=== PATIENT | male | born 1995 | race Caucasian/White ===

== ENCOUNTER 2018-07-14 11:23 | Inpatient (IN) ==
[2018-07-14] MEDS ORDERED: 0.9 % Sodium Chloride 1,000 ML IVC ONE ×3 (11:35→12:28)
[2018-07-14] MEDS ORDERED: Naloxone 0.4 MG/ML INJ IVP ONE (11:35)
--- NOTE | 2018-07-14 11:43 | Emergency Department Note ---
Overdose - [facility] Narrative Medical decision making narrative: Pt is a 23yo male who presents found to be in drug overdose. He was initially very hard to arouse but became combative when trying to have the pt worked up. CXR showed a right upper lobe pnuemonia, due to suspicion for aspiration and poor dentation clindamycin was given. CT head was negative for acute intracranial abnormality. CK was 3031 and fluids were given. Pt will be admitted for rhabdomyolysis and drug overdose. Potassium 3.4, replaced. Spoke with a dmitting physciain and she agrees to admission. - Medical Records Medical records reviewed: Yes I reviewed the patient's medical records. - Lab Data Lab results reviewed: Yes I reviewed the patient's lab results. Result diagrams: 07/14/18 17:58 07/14/18 11:45 Lab Results 07/14/18 07/14/18 07/14/18 Range/Units 11:34 11:45 11:45 WBC 17.3 H (4.3-11.1) K/mcL RBC 5.17 (4.19-5.50) M/mcL Hgb 14.5 (12.9-16.9) g/dL Hct 40.8 (37.5-50.1) % MCV 78.9 L (83.0-100.0) fL MCH 28.0 (28.0-33.3) pg MCHC 35.5 (31.6-35.5) g/dL RDW 11.9 (11.5-14.5) % Plt Count 224 (140-400) K/mcL MPV 10.0 (9.4-12.4) fL Immature Gran % 0.6 (0-4) % Seg Neutrophils % 71.9 % Lymphocytes % 14.7 % Monocytes % 12.4 % Eosinophils % 0.0 % Basophils % 0.4 % Neutrophils # 12.4 H (1.6-8.9) K/mcL Lymphocytes # 2.5 (0.6-4.6) K/mcL Monocytes # 2.2 H (0.0-1.3) K/mcL Eosinophils # 0.0 (0.0-0.6) K/mcL Basophils # 0.1 (0.0-0.2) K/mcL Sodium (136-145) mEq/L Potassium (3.5-5.1) mEq/L Chloride (98-107) mEq/L Carbon Dioxide (23-29) mEq/L BUN (6-20) mg/dL Creatinine (0.70-1.30) mg/dL Est GFR ( Amer) (> 60) Est GFR (Non-Af Amer) (> 60) BUN/Creatinine Ratio (6-26) Glucose (70-105) mg/dL POC Glucose 86 (70-99) mg/dL Calculated Osmolality (280-300) Calcium (8.6-10.3) mg/dL Total Bilirubin (0.3-1.0) mg/dL Direct Bilirubin (0.0-0.2) mg/dL Indirect Bilirubin (0.0-1.2) mg/dL AST (13-39) Units/L ALT (7-52) Units/L Alkaline Phosphatase (34-104) Units/L Creatine Kinase (30-223) Units/L Serum Total Protein (6.4-8.9) g/dL Albumin (3.5-5.7) g/dL Globulin (2.4-3.5) g/dL Albumin/Globulin Ratio (1.1-2.2) Salicylates < 2.5 L (15.0-30.0) mg/dL Acetaminophen < 10 L (10-20) mcg/mL Ethyl Alcohol (Less than 10) mg/dL 07/14/18 Range/Units 11:45 WBC (4.3-11.1) K/mcL RBC (4.19-5.50) M/mcL Hgb (12.9-16.9) g/dL Hct (37.5-50.1) % MCV (83.0-100.0) fL MCH (28.0-33.3) pg MCHC (31.6-35.5) g/dL RDW (11.5-14.5) % Plt Count (140-400) K/mcL MPV (9.4-12.4) fL Immature Gran % (0-4) % Seg Neutrophils % % Lymphocytes % % Monocytes % % Eosinophils % % Basophils % % Neutrophils # (1.6-8.9) K/mcL Lymphocytes # (0.6-4.6) K/mcL Monocytes # (0.0-1.3) K/mcL Eosinophils # (0.0-0.6) K/mcL Basophils # (0.0-0.2) K/mcL Sodium 134 L (136-145) mEq/L Potassium 3.4 L (3.5-5.1) mEq/L Chloride 97 L (98-107) mEq/L Carbon Dioxide 21 L (23-29) mEq/L BUN 19 (6-20) mg/dL Creatinine 1.06 (0.70-1.30) mg/dL Est GFR ( Amer) > 60 (> 60) Est GFR (Non-Af Amer) > 60 (> 60) BUN/Creatinine Ratio 18 (6-26) Glucose 87 (70-105) mg/dL POC Glucose (70-99) mg/dL Calculated Osmolality 280 (280-300) Calcium 9.2 (8.6-10.3) mg/dL Total Bilirubin 1.3 H (0.3-1.0) mg/dL Direct Bilirubin 0.4 H (0.0-0.2) mg/dL Indirect Bilirubin 0.9 (0.0-1.2) mg/dL AST 95 H (13-39) Units/L ALT 44 (7-52) Units/L Alkaline Phosphatase 48 (34-104) Units/L Creatine Kinase 3031 H (30-223) Units/L Serum Total Protein 7.8 (6.4-8.9) g/dL Albumin 4.6 (3.5-5.7) g/dL Globulin 3.2 (2.4-3.5) g/dL Albumin/Globulin Ratio 1.4 (1.1-2.2) Salicylates (15.0-30.0) mg/dL Acetaminophen (10-20) mcg/mL Ethyl Alcohol < 10 (Less than 10) mg/dL - Radiology Data Radiology results reviewed: Yes I reviewed the patient's radiology results. - EKG Data EKG attestation: Yes I reviewed and interpreted this EKG. EKG shows normal: sinus rhythm Rate: tachycardia Rhythm: NSR When compared to previous EKG there are: previous EKG unavailable Interpretation: no acute changes Overdose HPI - General Chief Complaint: ED Overdose Stated Complaint: Overdose Time Seen by Provider: 07/14/18 11:25 - History of Present Illness HPI Narrative: Mr Yoo is a 23yo male who is brought in by EMS. He apperently was released from longterm not too long ago and was at a drug house. He took an unknown substance while at this house and was found passed out. He is extremely somnolent and not able to provide a history of what happened whatsoever. On the way to ER he was given Versed due to agitation and had an IV started. He was immeditely assessed on arrival to the ER and was extremely somnolent. Pt Subjective Complaint: accidental overdose Onset (ago): unknown Intent: unknown How Overdose Was Discovered: other (EMS squad called) - Related Data Home Medications Medication Instructions Recorded Confirmed Unable To Obtain [Unable to Obtain] 07/14/18 07/14/18 Allergies Allergy/AdvReac Type Severity Reaction Status Date / Time Penicillins [PCN] Allergy Rash Verified 04/30/16 10:31 Limitations: ROS unobtainable due to patients medical condition Past Medical History - Past Medical History Medical history: Reports: no medical history - Social History Smoking Status: Current every day smoker Smokeless Tobacco Status: No Alcohol use: Reports: occasionally Physical Exam - General Limitations: altered mental status General appearance: appears intoxicated, lethargic, obtunded - Expanded Head Exam Head exam physicial: Present: laceration, abrasion, other (multiple scabs and cuts to the face, dried blood around nose, appears to have had trauma to the face) - Eye Eye exam: Present: mydriasis. Absent: scleral icterus - ENT ENT exam: mucous membranes dry, other (dried blood around nose) - Neck Neck exam: Present: normal inspection, trachea midline - Chest Chest inspection: Present: normal inspection, symmetric chest wall rise - Respiratory Respiratory exam: Present: normal lung sounds bilaterally. Absent: respiratory distress, wheezes - Cardiovascular Cardiovascular exam: Present: tachycardia, +S1, +S2. Absent: rubs, gallop, clicks - Abdominal Exam Abdominal exam: Present: soft. Absent: distention, guarding, rebound, rigidity - Extremities Exam Extremities exam: Present: normal capillary refill. Absent: pedal edema - Neurological Exam Neurological exam: Present: other (unable to assess). Absent: alert, oriented X3 - Expanded Neurological Exam Patient oriented to: Absent: person, place, time Coma Scale Eye Opening: None Coma Scale Motor Response: None Coma Scale Verbal Response: None Coma Scale Total: 3 - Psychiatric Psychiatric exam: Present: other (unable to assess) - Skin Skin exam: Present: warm, diaphoresis, other (covered in dirt) Course Course Narrative: Although the pt has a GSC of 3 on arrival, he improves to responsing to pain and is guarding his airway to gag reflex test. - Reevaluation(s) Reevaluation #1: Due to noncompliance with the workup including xr and CT, haldol and benadryl given. Vital Signs Temperature 101.5 F H 07/14/18 11:27 Pulse Rate 133 07/14/18 11:27 Respiratory Rate 35 07/14/18 11:27 Blood Pressure 138/70 07/14/18 11:27 O2 Sat by Pulse Oximetry 95 07/14/18 11:27 Temperature 101.5 F H 07/14/18 11:27 Pulse Rate 118 07/14/18 13:33 Respiratory Rate 24 07/14/18 13:33 Blood Pressure 136/78 07/14/18 13:33 O2 Sat by Pulse Oximetry 97 07/14/18 13:33 Oxygen Delivery Oxygen Delivery Room Air Disposition Clinical Impression: Drug overdose, Rhabdomyolysis Disposition: Admitted As Inpatient Condition: Serious Time of Disposition: 15:57 Attestation Statement - Attestation Attestation: Resident Attestation: I examined this patient and my medical decision making was reviewed with the Resident Physician. I agree with the documented findings, disposition and treatment plan as described except to the extent set forth below. We independently had [id number] contact with the patient. Patient presents for altered mental status. Was found at presumed drug house rolling around on the floor with altered mental status. The person the house states that he took "lots of meth". Patient has a long tattoo to his throat as well as crystal meth tattooed across his chest. He presents tachycardic and hyperthermic with dilated pupils and movement within the bed as well as gag reflex intact but no purposeful movements. The patient was given Narcan with no significant improvement. Patient will receive benzos as well as further workup for altered mental status for presumed from methamphetamines. Patient with elevated CK, leukocytosis, no abnormal CT of the head. Patient overall did improve while he was in the emergency department but did require 4 mg of Ativan. The patient then had overall improvement of his symptoms became more agitated with physical stimuli. Patient overall improving from a mental standpoint. Patient received Haldol for chemical sedation in order to allow us to perform head CT as well as chest x-ray. Patient did well with 2 mg of IV Haldol and 25 mg Benadryl. Patient will be admitted for further methamphetamine toxicity, rhabdo, altered mental status.
[2018-07-14] MEDS ORDERED: *HR* LORazepam 2 MG/ML VIAL IVP ONE ×4 (11:50→13:42)
[2018-07-14 12:01] LABS: Basophils # 0.1 K/mcL (0.0-0.2); Basophils % 0.4 %; Hematocrit 40.8 % (37.5-50.1); Hemoglobin 14.5 g/dL (12.9-16.9); Immature Granulocytes % 0.6 % (0-4); Lymphocytes # 2.5 K/mcL (0.6-4.6); Lymphocytes % 14.7 %; Mean Corpuscular HGB Conc 35.5 g/dL (31.6-35.5); Mean Corpuscular Volume 78.9 fL (83.0-100.0); Monocytes # 2.2 K/mcL (0.0-1.3); Monocytes % 12.4 %; Neutrophils # 12.4 K/mcL (1.6-8.9); Platelet Count 224 K/mcL (140-400); Red Blood Count 5.17 M/mcL (4.19-5.50); Red Cell Distribution Width 11.9 % (11.5-14.5); Segmented Neutrophils % 71.9 %
[2018-07-14 12:20] LABS: Acetaminophen < 10 mcg/mL (10-20); Alanine Aminotransferase 44 Units/L (7-52); Albumin 4.6 g/dL (3.5-5.7); Albumin/Globulin Ratio 1.4 (1.1-2.2); Alkaline Phosphatase 48 Units/L (34-104); Aspartate Amino Transferase 95 Units/L (13-39); BUN/Creatinine Ratio 18 (6-26); Bilirubin,Direct 0.4 mg/dL (0.0-0.2); Bilirubin,Indirect 0.9 mg/dL (0.0-1.2); Bilirubin,Total 1.3 mg/dL (0.3-1.0); Blood Urea Nitrogen 19 mg/dL (6-20); Calcium 9.2 mg/dL (8.6-10.3); Carbon Dioxide 21 mEq/L (23-29); Chloride 97 mEq/L (98-107); Ethanol < 10 mg/dL (Less than 10); Globulin 3.2 g/dL (2.4-3.5); Glucose 87 mg/dL (70-105); Osmolality,Calculated 280 (280-300); Potassium 3.4 mEq/L (3.5-5.1); Salicylate < 2.5 mg/dL (15.0-30.0); Sodium 134 mEq/L (136-145); Total Protein 7.8 g/dL (6.4-8.9); eGFR For Non-African Americans > 60 (> 60)
[2018-07-14 12:36] LABS: Creatine Kinase 3031 Units/L (30-223)
[2018-07-14] MEDS ORDERED: Haloperidol Lactate 5 MG/ML VIAL IVP ONE (13:42)
[2018-07-14] MEDS ORDERED: Clindamycin 300 MG in D5% in Water 50 ML IVPB ONE (15:44)
--- NOTE | 2018-07-14 16:06 | Internal Med History&Physical ---
Date of Encounter: 07/14/18 Time of Encounter: 16:03 Internal Medicine - H&P: HPI Chief complaint: Drug overdose Admitted From: Emergency Dept Plans for Post Hospital Care: Home History of present illness: Mr. Yoo is a 23 year old male patient brought to ER by EMS. As per EMS he took several pills of meth amphetamine but does not have accurate number as per patient. On the way Patient was very combative therefore worse at was given and brought to ER under sedated condition Initially in ER very hard to arouse but became combative again therefore Haldol, Benadryl and Ativan was given that put him on sleep. Mostly history obtained from ER physician and ED chart. In ER patient was found tachycardic with a spiked temperature. Initial lab with leukocytosis, raised CPK and mild electrolyte imbalance. CXR showed a right upper lobe pnuemonia, due to suspicion for aspiration and poor dentation clindamycin was given as patient also has penicillin allergy. CT head was negative for acute intracranial abnormality. ER physician called on-call hospitalists for the admission with the diagnosis of drug overdose, rhabdomyolysis, possible sepsis, aspiration pneumonia In ER IV fluid, clindamycin was given and blood culture was drawn. Review of system-unable to update due to clinical condition Past Med Surg Social Fam HX - Past Medical History Medical history: no medical history Psychiatric history: no psych history - Social History Smoking Status: Current every day smoker Smokeless Tobacco Status: No Alcohol use: occasionally Drug use: methamphetamine Internal Medicine - H&P: Meds Unable To Obtain [Unable to Obtain] 07/14/18 [History] Allergy/AdvReac Type Severity Reaction Status Date / Time Penicillins [PCN] Allergy Rash Verified 04/30/16 10:31 All Systems PM: A 10-system review of systems was performed and is negative for pertinent findings except as documented above in the HPI. - Constitutional Vitals: Temp Pulse Resp BP Pulse Ox 101.5 F H 118 24 136/78 97 07/14/18 11:27 07/14/18 13:33 07/14/18 13:33 07/14/18 13:33 07/14/18 13:33 Exam: General appearance: Patient is under the effect of sedating medicine.multiple scabs and cuts to the face, dried blood around nose, appears to have had trauma to the face) Eye exam: PERRLA ENT exam: Dry oral mucosa with poor dentition Neck nontender, supple Respiratory exam: Crackles on right upper lung Cardiovascular exam: Tachycardia with regular rhythm, no systolic murmur Abdominal exam: Soft, nontender, nondistended, positive bowel sounds Extremities exam: No calf tenderness, no pedal edema Present: Multiple scabs on face with the nearest scratch willem and face and other part of the body sporadically unable to exam Neurological exam: Unable to examine as patient under the effect of sedating medicine Internal Med - H&P Results - Labs CBC & Chem 7: 07/14/18 11:45 07/14/18 11:45 Labs: Short CBC 07/14/18 Range/Units 11:45 WBC 17.3 H (4.3-11.1) K/mcL Hgb 14.5 (12.9-16.9) g/dL Hct 40.8 (37.5-50.1) % Plt Count 224 (140-400) K/mcL Neutrophils # 12.4 H (1.6-8.9) K/mcL BMP 07/14/18 11:45 Sodium 134 L Potassium 3.4 L Chloride 97 L Carbon Dioxide 21 L BUN 19 Creatinine 1.06 Glucose 87 Calcium 9.2 Liver Function 07/14/18 Range/Units 11:45 Total Bilirubin 1.3 H (0.3-1.0) mg/dL Direct Bilirubin 0.4 H (0.0-0.2) mg/dL AST 95 H (13-39) Units/L ALT 44 (7-52) Units/L Alkaline Phosphatase 48 (34-104) Units/L Albumin 4.6 (3.5-5.7) g/dL - Impressions ITS Impressions Head CT 07/14/18 11:32 IMPRESSION: Negative CT brain with no acute intracranial abnormality. Incidental sinusitis as described D/ / Susana Henderson MD / Susana Henderson MD Interpreting Provider: Susana Henderson MD Cervical Spine CT 07/14/18 11:33 IMPRESSION: 1. Unremarkable appearance of the cervical spine. 2. Partially visualized extensive right upper lobe opacification. Possible right supraclavicular and mediastinal adenopathy. Findings may relate to pneumonia with reactive adenopathy however recommend contrast-enhanced CT examination of the chest for further assessment. D/ / Susana Henderson MD / Susana Henderson MD Interpreting Provider: Susana Henderson MD Chest X-Ray 07/14/18 11:35 IMPRESSION: Right upper lobe pneumonia D/ / Doug Nicholas MD / Doug Nicholas MD Interpreting Provider: Doug Nicholas MD - Assessment and plan (1) Drug overdose Current Visit: Yes Status: Acute Assessment and plan: Possibly methamphetamine with unknown quantity. Urine drug screen was not done in the ER as no urine sample was obtained. Patient was getting very irritable while attempting straight catheter. Will keep patient in ICU with close monitoring. Will consult erp manager if needed. Ativan when necessary for sedation. Will keep patient nothing by mouth with IV fluid 125 mL per hour with a strict I&O's. Will try to attempt fully catheter again. Will also rule out underlying infectious etiology. CT head with no acute finding. Tetanus shot given in the ER Will consult inpatient psych once medically cleared Qualifiers: Encounter type: initial encounter Injury intent: undetermined intent Qualified Code(s): T50.904A - Poisoning by unspecified drugs, medicaments and biological substances, undetermined, initial encounter (2) Rhabdomyolysis Current Visit: Yes Status: Acute Assessment and plan: Raised CPK with normal creatinine level. Possibility patient must have been lying on the floor for a while but no witnessed. IV fluid 125 mL per hour. CPK monitor. Will consult nephrology if needed. Qualifiers: Rhabdomyolysis type: non-traumatic Qualified Code(s): M62.82 - Rhabdomyolysis (3) Pneumonia Current Visit: Yes Status: Acute Assessment and plan: Possibility of aspiration pneumonia. Chest x-ray with right upper lobe pneumonia. Patient also has fever with raised white count. Clindamycin is started in the ER will continue same,. Oxygen when necessary Qualifiers: Pneumonia type: due to unspecified organism Laterality: right Lung location: upper lobe of lung Qualified Code(s): J18.1 - Lobar pneumonia, unspecified organism (4) Leucocytosis Current Visit: Yes Status: Acute Assessment and plan: With left shift. Possible sepsis, On admission SIRS criteria- 101.5, tachycardia, tachypnea, leukocytosis. Lactate ordered. Blood culture, urine culture ordered. Continue clindamycin. Qualifiers: Leukocytosis type: unspecified Qualified Code(s): D72.829 - Elevated white blood cell count, unspecified (5) Hypokalemia Current Visit: Yes Status: Acute Assessment and plan: Replacement and monitor (6) Fever Current Visit: Yes Status: Acute Assessment and plan: As mentioned above. Tylenol when necessary Qualifiers: Fever type: unspecified Qualified Code(s): R50.9 - Fever, unspecified (7) DVT prophylaxis Current Visit: Yes Status: Acute Assessment and plan: Heparin subcutaneous - Time Spent With Patient Total time spent is greater than 50% in coordination of care (as documented) at patient's floor/unit and/or counseling patient: Greater than 35 minutes
[2018-07-14] MEDS ORDERED: Tdap (Boostrix) Vaccine 0.5 ML SYRINGE IM ONE (16:27)
[2018-07-14] MEDS ORDERED: Naloxone 0.4 MG/ML INJ IVP PRN (16:31)
[2018-07-14] MEDS ORDERED: Potassium Chloride 20 MEQ, Lidocaine 1% 2 ML in D5% in Water 250 ML IVPB ONE (16:36)
[2018-07-14] MEDS ORDERED: Clindamycin 300 MG/50 ML 300 MG/50 ML IV.SOLN IVPB ONE (17:00)
[2018-07-14] MEDS ORDERED: Ondansetron 4 MG/2 ML VIAL IVP PRN (17:05)
[2018-07-14] MEDS: *HR* Heparin 5,000 UNIT/ML VIAL SQ SCH (18:04)
[2018-07-14] MEDS: 0.9 % Sodium Chloride 1,000 ML IVC SCH ×3 (18:04→18:48)
[2018-07-14 18:16] LABS: Basophils # 0.1 K/mcL (0.0-0.2); Basophils % 0.3 %; Hematocrit 36.8 % (37.5-50.1); Hemoglobin 12.9 g/dL (12.9-16.9); Immature Granulocytes % 0.4 % (0-4); Lymphocytes # 1.8 K/mcL (0.6-4.6); Lymphocytes % 11.1 %; Mean Corpuscular HGB Conc 35.1 g/dL (31.6-35.5); Mean Corpuscular Hemoglobin 28.4 pg (28.0-33.3); Mean Corpuscular Volume 80.9 fL (83.0-100.0); Mean Platelet Volume 9.7 fL (9.4-12.4); Monocytes # 1.7 K/mcL (0.0-1.3); Monocytes % 10.3 %; Neutrophils # 12.8 K/mcL (1.6-8.9); Platelet Count 187 K/mcL (140-400); Red Blood Count 4.55 M/mcL (4.19-5.50); Segmented Neutrophils % 77.9 %
[2018-07-14 18:42] LABS: Troponin I 0.06 ng/mL (< 0.04)
[2018-07-14] MEDS: *HR* LORazepam 2 MG/ML VIAL IVP PRN ×2 (19:01→21:04)
[2018-07-14 20:14] LABS: Magnesium 2.5 mg/dL (1.6-2.6)
[2018-07-14 21:26] LABS: Bilirubin,Urine Negative (Negative); Blood,Urine Small (Negative); Clarity,Urine Clear (Clear); Color,Urine Yellow (Yellow); Glucose,Urine (UA) Normal (Normal); Ketones,Urine 80 mg/dL (Negative); Leukocyte Esterase,Urine Negative (Negative); Nitrite,Urine Negative (Negative); Protein,Urine 30 mg/dL (Neg-Trace); Urobilinogen,Urine Normal (Normal)
[2018-07-14 21:28] LABS: Bacteria,Urine None Seen per hpf (None-Few); Hyaline Casts,Urine None Seen per lpf (None-Few); Squamous Epithelial Cell,Urine Moderate per lpf (None-Few)
[2018-07-14 21:41] LABS: Sperm,Urine Present
[2018-07-14 21:45] LABS: Amphetamine Screen,Urine Positive ng/mL (Cutoff=1000); Barbiturate Screen,Urine Negative ng/mL (Cutoff=200); Benzodiazepines Screen,Urine Positive ng/mL (Cutoff=200); Cannabinoid Screen,Urine Positive ng/mL (Cutoff = 50); Cocaine Screen,Urine Negative ng/mL (Cutoff= 300); Opiate Screen,Urine Negative ng/mL (Cutoff=300); Phencyclidine Screen,Urine Negative ng/mL (Cutoff=25)
[2018-07-14] MEDS: Clindamycin 600 MG/50 ML 600 MG/50 ML IV.SOLN IVPB SCH (23:20)
[2018-07-15] MEDS: *HR* LORazepam 2 MG/ML VIAL IVP PRN ×2 (00:20→07:26)
[2018-07-15] MEDS: 0.9 % Sodium Chloride 1,000 ML IVC SCH ×2 (02:24→07:25)
[2018-07-15 04:57] LABS: Basophils # 0.1 K/mcL (0.0-0.2); Basophils % 0.4 %; Eosinophils # 0.1 K/mcL (0.0-0.6); Eosinophils % 0.4 %; Hematocrit 37.3 % (37.5-50.1); Hemoglobin 12.7 g/dL (12.9-16.9); Immature Granulocytes % 0.3 % (0-4); Lymphocytes # 1.8 K/mcL (0.6-4.6); Lymphocytes % 15.7 %; Mean Corpuscular Volume 82.2 fL (83.0-100.0); Mean Platelet Volume 9.8 fL (9.4-12.4); Monocytes # 1.1 K/mcL (0.0-1.3); Monocytes % 9.5 %; Neutrophils # 8.3 K/mcL (1.6-8.9); Platelet Count 187 K/mcL (140-400); Red Blood Count 4.54 M/mcL (4.19-5.50); Red Cell Distribution Width 12.4 % (11.5-14.5); Segmented Neutrophils % 73.7 %
[2018-07-15 05:16] LABS: BUN/Creatinine Ratio 18 (6-26); Blood Urea Nitrogen 12 mg/dL (6-20); Calcium 8.3 mg/dL (8.6-10.3); Carbon Dioxide 17 mEq/L (23-29); Chloride 108 mEq/L (98-107); Chol/HDL Ratio 2.4 (0-4.9); Cholesterol 60 mg/dL (< 200); Glucose 75 mg/dL (70-105); HDL Cholesterol 25 mg/dL (40-59); LDL Cholesterol,Calculated 27 mg/dL (0-99); Osmolality,Calculated 282 (280-300); Potassium 3.9 mEq/L (3.5-5.1); Sodium 137 mEq/L (136-145); Triglycerides 41 mg/dL (< 150); eGFR For Non-African Americans > 60 (> 60)
[2018-07-15] MEDS: *HR* Heparin 5,000 UNIT/ML VIAL SQ SCH ×2 (06:08→17:40)
[2018-07-15] MEDS ORDERED: 0.9 % Sodium Chloride 1,000 ML IVC SCH (07:49)
--- NOTE | 2018-07-15 07:57 | Nephrology Consult Note ---
Date of Encounter: 07/15/18 Time of Encounter: 08:00 Assessment and Plan (1) Rhabdomyolysis Current Visit: Yes Status: Acute Non-oliguric with normal SCr, but worsening CPK. I recommend volume expansion with inc'd fluid rate to 200mL/hr. He also has a nonanion gap metabolic acidosis, which could worsen from a dilution acidosis possibility from the NS, so I recommend changing the IVF to 1/2NS + 75mEq NaBicarb. He has mild hypokalemia and hypocalcemia, and so I've started the Electrolyte replacement protocols while he is in the ICU and on a higher flow of IVF. Since he is making urine, I will hold off and not recommend KEY FILER at this point. However, he needs a repeat BMP rechecked later today and will need to assess an osmolar gap. He denied consuming antifreeze, but given his polysubstance consumption, will need to check an osmolar gap. I spent about 37 min in CCT including exam, review of chart, documentation, discussing with the ICU RNs. Thank you for consulting the [facility]. Will follow with you. Qualifiers: Rhabdomyolysis type: non-traumatic Qualified Code(s): M62.82 - Rhabdomyolysis (2) Metabolic acidosis Current Visit: Yes Status: Acute See above (3) Hypocalcemia Current Visit: Yes Status: Acute See above. (4) Drug overdose Current Visit: Yes Status: Acute See above Qualifiers: Encounter type: initial encounter Injury intent: undetermined intent Qualified Code(s): T50.904A - Poisoning by unspecified drugs, medicaments and biological substances, undetermined, initial encounter (5) Leucocytosis Current Visit: Yes Status: Acute Qualifiers: Leukocytosis type: unspecified Qualified Code(s): D72.829 - Elevated white blood cell count, unspecified (6) Hypokalemia Current Visit: Yes Status: Acute see above History of Present Illness - Reason for Consult Consult date: 07/15/18 Acute Kidney Injury Requesting physician: Araceli Mercado - Chief Complaint Elevated CPK/Rhabdo - History of Present Illness 23 y/o WM who presented with polysubstance abuse yesterday. Nephrology was consulted today d/t the rising CPK. He denied consuming moonshine, antifreeze, Tylenol, ASA or other NSAIDs in XS, and bath salts. He was admitted last night to the ICU with a moderately elevated CPK, but it was found to be >20k this AM. He said that he is urinating and denied burning sensations. He denied F/N/V/D but did affirm chills. He said that he had a fight with his mother when he called her recently, but that he denied suicidal attempt. He has received IVF overnight. He was constantly moving in the bed and had unfocused speech, and this largely limited me from obtaining an in depth history including more HPI, ROS and Family history. Past Med Surg Social Fam HX - Past Medical History Medical history: no medical history Psychiatric history: no psych history - Social History Smoking Status: Current every day smoker Smokeless Tobacco Status: No Alcohol use: occasionally Drug use: methamphetamine Medications and Allergies Unable To Obtain [Unable to Obtain] 07/14/18 [History] Allergy/AdvReac Type Severity Reaction Status Date / Time Penicillins [PCN] Allergy Rash Verified 04/30/16 10:31 Review of Systems ROS unobtainable: due to mental status Exam - Vital Signs Vital signs: Initial Vital Signs Temp Pulse Resp BP Pulse Ox 101.5 F H 133 35 138/70 95 07/14/18 11:27 07/14/18 11:27 07/14/18 11:27 07/14/18 11:27 07/14/18 11:27 Vital Signs - Last 8 Hours Temp Pulse Resp BP Pulse Ox 07/15/18 07:00 98.3 F 112 26 105/49 07/15/18 06:00 112 24 103/46 07/15/18 05:00 110 20 110/52 07/15/18 04:00 113 22 105/41 07/15/18 03:00 115 22 114/43 07/15/18 02:00 117 20 103/51 07/15/18 01:00 120 22 99/47 100 07/15/18 00:00 98.5 F 112 28 131/86 100 Intake and Output 07/14/18 07/14/18 07/15/18 15:59 23:59 07:59 Intake Total 3000 / 3000 357 / 357 1005 / 1005 Output Total 400 / 400 750 / 750 Balance 3000 / 3000 -43 / -43 255 / 255 Intake: IV Fluids 3000 / 3000 357 / 357 1005 / 1005 0.9 % Sodium Chloride 1,000 ML 3000 / 3000 45 / 45 955 / 955 @ 100 mls/hr IVC .Q10H [facility] Rx#: [id number] Cleocin 300 MG/50 ML 300 mg In 50 / 50 50 ml @ 100 mls/hr IVPB ONCE ONE Rx#:[id number] Cleocin Premix 600 MG/50 ML 600 50 / 50 mg In 50 ml @ 50 mls/hr IVPB Q8HR [facility] Rx#:[id number] KCl 20 MEQ Xylocaine 2 ML In 262 / 262 Dextrose 5% 250 ML @ 131 mls/hr IVPB ONCE ONE Rx#:[id number] Oral 0 / 0 Output: Urine 400 / 400 750 / 750 Other: # Voids 1 Weight 93.44 kg 93.2 kg Blood Glucose* 75 - General Appearance General appearance: appears started age Exam: disheveled with dirty nails and feet EENT: ATNC, mucous membranes moist Respiratory: clear Cardiology: no murmurs, normal S1, normal S2 Gastrointestinal: normoactive bowel sounds, no tenderness, no guarding Integumentary: rash (numerous skin lesion on face and arms (appears consistent with a pitting-like lesion)) Additional Comments: constantly wrangling and twisting and moving in the bed. He was moving all four extremities, but this limited a complete Neuro exam. Musculoskeletal: no deformities, no erythema, no cyanosis Psychiatric: mood/affect appropriate, cooperative Results - Lab Results 07/15/18 04:42 07/15/18 04:40 Most recent lab results Calcium 8.3 mg/dL (8.6-10.3) L 07/15/18 04:40 Magnesium 2.5 mg/dL (1.6-2.6) 07/14/18 17:58 I reviewed the labs, vitals, med lists, progress notes, imaging. Consult Discharge Plan - Plan Referrals: NONE,PCP [Primary Care Provider] -
[2018-07-15] MEDS: Pantoprazole 40 MG VIAL IVP SCH (07:58)
[2018-07-15] MEDS: Clindamycin 600 MG/50 ML 600 MG/50 ML IV.SOLN IVPB SCH ×2 (07:58→15:12)
[2018-07-15] MEDS ORDERED: Sodium Bicarbonate 75 MEQ in 0.45 % Sodium Chloride 1,000 ML IVC SCH (08:15)
--- NOTE | 2018-07-15 10:20 | Internal Med Progress Note ---
Hospitalist Progress Note - Encounter Date of Encounter: 07/15/18 Time of Encounter: 10:15 - Subjective Interval History: Patient is still sleepy but arousable. Intermittently bit aggressive. Reviewed the lab with trending down white count but worsening of CPK more than 20,000 with normal creatinine level. Patient has been coughing a lot with some productive a sputum. Not a good historian and not much cooperative in the conversation. Denies fever vomiting headache chest pain short of breath diarrhea abdominal pain - Exam Vitals: Temp Pulse Resp BP Pulse Ox 100.3 F H 126 27 108/64 97 07/15/18 10:00 07/15/18 10:00 07/15/18 10:00 07/15/18 10:00 07/15/18 10:00 Exam: General appearance: Sleepy but arousable. Poor historian does not want to talk much. Poor hygiene. multiple scabs and cuts to the face, appears to have had trauma to the face) Eye exam: PERRLA EOMI ENT exam: Dry oral mucosa with poor dentition Neck nontender, supple Respiratory exam: Decreased sound on right upper lung Cardiovascular exam: Tachycardia with regular rhythm, no systolic murmur Abdominal exam: Soft, nontender, nondistended, positive bowel sounds Extremities exam: No calf tenderness, no pedal edema Present: Multiple scabs on face with linear scratch willem and face Neurological exam: Cranial 2-12 intact with no focal neurological deficit. Motor 5 x 5 in all 4 extremities - Assessment and Plan (1) Drug overdose Current Visit: Yes Status: Acute Assessment and Plan: Possibly methamphetamine with unknown quantity and unknown intervention for suic idal attempt. Urine drug screen positive for amphetamine, benzodiazepine, marijuana. Alcohol level less than 10. Patient Will keep patient in ICU with close monitoring. Sitter at bedside. Ativan when necessary for sedation. Nothing by mouth now. Will do swallow study before restarting oral diet. Continue IV fluid with a strict I&O's. No Horta was placed as patient has been irritable and noncooperative. CT head with no acute finding. Tetanus shot given in the ER Will consult inpatient psych once medically cleared (2) Rhabdomyolysis Current Visit: Yes Status: Acute Assessment and Plan: Worsening CPK therefore consulted crisis intervention counselor who is started half normal saline with bicarbonate at 200 mL per hour. Electrolyte replacement and monitoring. Need to assess osmolar gap though pat ient denies consuming antifreeze but had polysubstance abuse. (3) Tachycardia Current Visit: Yes Status: Acute Assessment and Plan: Sinus tachycardia. Unknown etiology but could be due to the effect of drug overdose or maybe withdrawal symptoms. Slight trending up troponin-could be demand ischemia due to sepsis and also tachycardia but will also order the echocardiogram. Will consult cardiology if needed. IV beta tong when necessary is started. Denies chest pain or shortness of breath. (4) Pneumonia Current Visit: Yes Status: Acute Assessment and Plan: Possibility of aspiration pneumonia. Chest x-ray with right upper lobe pneumonia. But patient has been in shelter with polysubstance abuse could be possibility for TV therefore needs to rule out. Consulted product safety test engineer for further evaluation. Continue clindamycin, DuoNeb, oxygen when necessary, incentive spirometry. Will also consult respiratory therapist .Trending down white count. (5) Leucocytosis Current Visit: Yes Status: Acute Assessment and Plan: With left shift. Possible sepsis, On admission SIRS criteria- 101.5, tachycardia, tachypnea, leukocytosis. Lactate normal. Blood culture, urine culture ordered. Continue clindamycin. Trending down white count. (6) Hypokalemia Current Visit: Yes Status: Acute Assessment and Plan: Replacement and monitor (7) Fever Current Visit: Yes Status: Acute Assessment and Plan: No fever overnight. Tylenol when necessary (8) DVT prophylaxis Current Visit: Yes Status: Acute Assessment and Plan: Heparin subcutaneous - Time Spent with Patient Total time spent is greater than 50% in coordination of care (as documented) at patient's floor/unit and/or counseling patient: Internal Medicine: Result - Labs CBC & Chem 7: 07/15/18 04:42 07/15/18 04:40 Labs: Short CBC 07/14/18 07/14/18 07/15/18 Range/Units 11:45 17:58 04:42 WBC 17.3 H 16.4 H 11.3 H (4.3-11.1) K/mcL Hgb 14.5 12.9 D 12.7 L (12.9-16.9) g/dL Hct 40.8 36.8 L 37.3 L (37.5-50.1) % Plt Count 224 187 187 (140-400) K/mcL Neutrophils # 12.4 H 12.8 H 8.3 (1.6-8.9) K/mcL BMP 07/14/18 07/15/18 11:45 04:40 Sodium 134 L 137 Potassium 3.4 L 3.9 Chloride 97 L 108 H Carbon Dioxide 21 L 17 L BUN 19 12 Creatinine 1.06 0.65 L Glucose 87 75 Calcium 9.2 8.3 L Cardiac Enzymes 07/14/18 07/14/18 Range/Units 17:58 22:56 Troponin I 0.06 H* 0.04 H* (< 0.04) ng/mL Liver Function 07/14/18 Range/Units 11:45 Total Bilirubin 1.3 H (0.3-1.0) mg/dL Direct Bilirubin 0.4 H (0.0-0.2) mg/dL AST 95 H (13-39) Units/L ALT 44 (7-52) Units/L Alkaline Phosphatase 48 (34-104) Units/L Albumin 4.6 (3.5-5.7) g/dL Urine 07/14/18 Range/Units 21:15 Urine Color Yellow (Yellow) Urine Clarity Clear (Clear) Urine pH 6.0 (5.0-8.0) pH Units Ur Specific [place] 1.020 (1.010-1.025) Urine Protein 30 H (Neg-Trace) mg/dL Urine Glucose (UA) Normal (Normal) mg/dL - Impressions Impressions Head CT 07/14/18 11:32 IMPRESSION: Negative CT brain with no acute intracranial abnormality. Incidental sinusitis as described D/ / Susana Henderson MD / Susana Henderson MD Interpreting Provider: Susana Henderson MD Cervical Spine CT 07/14/18 11:33 IMPRESSION: 1. Unremarkable appearance of the cervical spine. 2. Partially visualized extensive right upper lobe opacification. Possible right supraclavicular and mediastinal adenopathy. Findings may relate to pneumonia with reactive adenopathy however recommend contrast-enhanced CT examination of the chest for further assessment. D/ / Susana Henderson MD / Susana Henderson MD Interpreting Provider: Susana Henderson MD Chest X-Ray 07/14/18 11:35 IMPRESSION: Right upper lobe pneumonia D/ / Doug Nicholas MD / Doug Nicholas MD Interpreting Provider: Doug Nicholas MD Consult Discharge Plan - Plan Referrals: NONE,PCP [Primary Care Provider] - (1) Drug overdose Qualifiers: Encounter type: initial encounter Injury intent: undetermined intent Qualified Code(s): T50.904A - Poisoning by unspecified drugs, medicaments and biological substances, undetermined, initial encounter (2) Rhabdomyolysis Qualifiers: Rhabdomyolysis type: non-traumatic Qualified Code(s): M62.82 - Rhabdomyolysis (4) Pneumonia Qualifiers: Pneumonia type: due to unspecified organism Laterality: right Lung location: upper lobe of lung Qualified Code(s): J18.1 - Lobar pneumonia, unspecified organism (5) Leucocytosis Qualifiers: Leukocytosis type: unspecified Qualified Code(s): D72.829 - Elevated white blood cell count, unspecified (7) Fever Qualifiers: Fever type: unspecified Qualified Code(s): R50.9 - Fever, unspecified
[2018-07-15] MEDS ORDERED: *HR* Metoprolol 5 MG/5 ML VIAL IVP PRN (10:32)
--- NOTE | 2018-07-15 10:53 | Pulmonology Consult Note ---
<Constance Pickering M - Last Filed: 07/15/18 16:46> Date of Encounter: 07/15/18 Medications and Allergies Unable To Obtain [Unable to Obtain] 07/14/18 [History] Allergy/AdvReac Type Severity Reaction Status Date / Time Penicillins [PCN] Allergy Rash Verified 07/15/18 13:47 All Systems: The remainder of the systems were reviewed and are negative Physical Examination Vital Signs: Vital Signs, Last 4 Hours Pulse Resp BP Pulse Ox 07/15/18 16:00 24 99/55 96 07/15/18 15:00 22 106/58 97 07/15/18 14:00 122 24 111/49 99 07/15/18 13:00 30 113/46 Results - Laboratory Findings CBC and BMP: 07/15/18 04:42 07/15/18 04:40 Abnormal lab findings: Abnormal lab results WBC 11.3 K/mcL (4.3-11.1) H 07/15/18 04:42 Hgb 12.7 g/dL (12.9-16.9) L 07/15/18 04:42 Hct 37.3 % (37.5-50.1) L 07/15/18 04:42 MCV 82.2 fL (83.0-100.0) L 07/15/18 04:42 Chloride 108 mEq/L (98-107) H 07/15/18 04:40 Carbon Dioxide 17 mEq/L (23-29) L 07/15/18 04:40 Creatinine 0.65 mg/dL (0.70-1.30) L 07/15/18 04:40 Calcium 8.3 mg/dL (8.6-10.3) L 07/15/18 04:40 Phosphorus 1.6 mg/dL (2.7-4.5) L 07/15/18 10:44 Total Bilirubin 1.3 mg/dL (0.3-1.0) H 07/14/18 11:45 Direct Bilirubin 0.4 mg/dL (0.0-0.2) H 07/14/18 11:45 AST 95 Units/L (13-39) H 07/14/18 11:45 Creatine Kinase 4667 Units/L (30-223) H 07/15/18 04:40 Troponin I 0.04 ng/mL (< 0.04) H* 07/14/18 22:56 HDL Cholesterol 25 mg/dL (40-59) L 07/15/18 04:40 Lipase 3 Units/L (11-82) L 07/14/18 17:58 Urine Protein 30 mg/dL (Neg-Trace) H 07/14/18 21:15 Urine Ketones 80 mg/dL (Negative) H 07/14/18 21:15 Urine Blood Small (Negative) H 07/14/18 21:15 Urine Microscopic RBC 3-5 per hpf (0-3) H 07/14/18 21:15 Urine Microscopic WBC 3-5 per hpf (0-3) H 07/14/18 21:15 Ur Squamous Epith Cells Moderate per lpf (None-Few) H 07/14/18 21:15 Salicylates < 2.5 mg/dL (15.0-30.0) L 07/14/18 11:45 Acetaminophen < 10 mcg/mL (10-20) L 07/14/18 11:45 Ur Amphetamines Screen Positive ng/mL (Gxxpnq=1722) H 07/14/18 21:15 U Benzodiazepines Scrn Positive ng/mL (Vazvgv=553) H 07/14/18 21:15 U Marijuana (THC) Screen Positive ng/mL (Cutoff = 50) H 07/14/18 21:15 - Microbiology Findings Microbiology Findings: Microbiology, Last 48 Hours 07/15/18 09:26 Blood Culture - Preliminary Peripheral Venipuncture Culture is incubating and being continuously monitored for growth. Final report to follow. 07/15/18 09:21 Blood Culture - Preliminary Peripheral Venipuncture Culture is incubating and being continuously monitored for growth. Final report to follow. - Clinical Findings Intake & Output: Intake & Output 07/15/18 07/15/18 07/15/18 07:59 15:59 23:59 Intake Total 1855 / 1855 1180 / 1180 Output Total 750 / 750 660 / 660 600 / 600 Balance 1105 / 1105 520 / 520 -600 / -600 Consult Discharge Plan - Plan Referrals: NONE,PCP [Primary Care Provider] - - Attending Attestation I examined this patient and my medical decision-making was reviewed with the Resident Physician. I agree with the documented findings, disposition and treatment plan as described except to the extent set forth below. Patient seen and examined. Labs, radiology, chart personally reviewed. 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 I am concern of withdrawal especially with his tachycardia which could be related to low-grade fever and will monitor in ICU. Pulmonary: Acceptable oxygenation and ventilation. Review chest x-ray and I suspect aspiration pneumonia and due to his penicillin allergy will leave him on clindamycin and patient stated he had TB skin test in the past which was negative and we will repeat that. At this time he denies any hemoptysis and any previous history of tuberculosis and I do not see strong reason to isolate the patient with airborne especially he does not have any significant cough or sputum production. Cardiovascular: Tachycardia which could be multifactorial and he is getting hydration GI: Nutrition per dietary and GI prophylaxis per routine Heme: DVT prophylaxis per routine ID: Continue antibiotics and plan to de-escalation Renal; urine out put and renal funtion reviewed. Nephrology is following up and agree with the plan. IV fluid is important. Endorcine: blood glucose is monitored Lines: all lines checked and no evidence of infections Skin: skin care to prevent pressure ulcers per nursing routine care Thank you for the consultation <Michelle Franklin - Last Filed: 07/15/18 21:43> Date of Encounter: 07/15/18 Time of Encounter: 16:22 Assessment and Plan (1) Pneumonia Current Visit: Yes Status: Suspected - Pulmonoloy consulted for possible PNA - Patient was found down and is high risk for aspiration - Septic on presentation with 4/4 SIRS, however this is more likely due to his drug use - CXR shows RUL consolidation suspicion for PNA - Also concern for TB as patient was recently incarcerated - Blood cultures negative so far - Started on clindamycin in ED, continue, day 2 Plan - Continue clindamycin - PPD skin test ordered, do not feel that he is high risk to merit negative pressure/N95 precautions - Receiving fluids for possible rhabomyolysis Qualifiers: Pneumonia type: aspiration pneumonia Aspiration pneumonia type: due to gastric secretions Laterality: right Lung location: upper lobe of lung Qualified Code(s): J69.0 - Pneumonitis due to inhalation of food and vomit (2) Leucocytosis Current Visit: Yes Status: Acute - Suspect reactive from overdue vs infection - management as above Qualifiers: Leukocytosis type: unspecified Qualified Code(s): D72.829 - Elevated white blood cell count, unspecified (3) Drug overdose Current Visit: Yes Status: Acute UDS positive for BZ, meth, marijuana. - Supportive care per primary team - Will start on CIWA Qualifiers: Encounter type: initial encounter Injury intent: undetermined intent Qualified Code(s): T50.904A - Poisoning by unspecified drugs, medicaments and biological substances, undetermined, initial encounter (4) Rhabdomyolysis Current Visit: Yes Status: Acute - management per primary team and nephrology Qualifiers: Rhabdomyolysis type: non-traumatic Qualified Code(s): M62.82 - Rhabdomyolysis History of Present Illness Consult date: 07/15/18 Reason for consult: pneumonia Chief complaint: AMS, found down History of present illness: Mr. Yoo is a 23 year old male with a PMhx of drug abuse who presented to ED after being found down. Pulmonary was consulted for concern for possible TB vs PNA. Patient presented altered with no family and was unable to provide history. Per EMS and chart review, he was recently released from senior care and has a history of drug abuse. On presentation to the ED, vitals were significant for fever of 101.5, HR 130s, RR 30s. Did have leukocytosis at 17. UDS was positive for BZ, amphetamines, marijuana. Patient continues to be altered on interview today and does not have comprehensible speech. Exam and interview are limited due to this. Past Med Surg Social Fam HX - Past Medical History Medical history: no medical history Psychiatric history: no psych history - Social History Smoking Status: Current every day smoker Smokeless Tobacco Status: No Alcohol use: occasionally Drug use: methamphetamine ROS unobtainable: due to mental status All Systems: The remainder of the systems were reviewed and are negative Physical Examination Vital Signs: Vital Signs, Last 4 Hours Temp Pulse Resp BP Pulse Ox 07/15/18 10:00 100.3 F H 126 27 108/64 97 07/15/18 09:00 124 24 112/64 98 07/15/18 08:00 128 27 107/82 07/15/18 07:00 98.3 F 112 26 105/49 General appearance: no acute distress, lethargic, asleep ENT: oropharynx moist Neck: supple Effort: normal Auscultation: bilateral: other (Poor cooperation ) Cardiovascular: regular rate and rhythm Gastrointestinal: absent bowel sounds, soft, non-tender, non-distended Integumentary: other (diffuse scabbed lesions) Extremities: no cyanosis, no edema (Bilateral pedal, nonpitting), pink and warm, pulses normal Musculoskeletal: no deformities unable to assess due to mental status Results - Laboratory Findings CBC and BMP: 07/15/18 04:42 07/15/18 04:40 Abnormal lab findings: Abnormal lab results WBC 11.3 K/mcL (4.3-11.1) H 07/15/18 04:42 Hgb 12.7 g/dL (12.9-16.9) L 07/15/18 04:42 Hct 37.3 % (37.5-50.1) L 07/15/18 04:42 MCV 82.2 fL (83.0-100.0) L 07/15/18 04:42 Chloride 108 mEq/L (98-107) H 07/15/18 04:40 Carbon Dioxide 17 mEq/L (23-29) L 07/15/18 04:40 Creatinine 0.65 mg/dL (0.70-1.30) L 07/15/18 04:40 Calcium 8.3 mg/dL (8.6-10.3) L 07/15/18 04:40 Total Bilirubin 1.3 mg/dL (0.3-1.0) H 07/14/18 11:45 Direct Bilirubin 0.4 mg/dL (0.0-0.2) H 07/14/18 11:45 AST 95 Units/L (13-39) H 07/14/18 11:45 Creatine Kinase 4667 Units/L (30-223) H 07/15/18 04:40 Troponin I 0.04 ng/mL (< 0.04) H* 07/14/18 22:56 HDL Cholesterol 25 mg/dL (40-59) L 07/15/18 04:40 Lipase 3 Units/L (11-82) L 07/14/18 17:58 Urine Protein 30 mg/dL (Neg-Trace) H 07/14/18 21:15 Urine Ketones 80 mg/dL (Negative) H 07/14/18 21:15 Urine Blood Small (Negative) H 07/14/18 21:15 Urine Microscopic RBC 3-5 per hpf (0-3) H 07/14/18 21:15 Urine Microscopic WBC 3-5 per hpf (0-3) H 07/14/18 21:15 Ur Squamous Epith Cells Moderate per lpf (None-Few) H 07/14/18 21:15 Salicylates < 2.5 mg/dL (15.0-30.0) L 07/14/18 11:45 Acetaminophen < 10 mcg/mL (10-20) L 07/14/18 11:45 Ur Amphetamines Screen Positive ng/mL (Zjpdzv=1915) H 07/14/18 21:15 U Benzodiazepines Scrn Positive ng/mL (Tctheo=644) H 07/14/18 21:15 U Marijuana (THC) Screen Positive ng/mL (Cutoff = 50) H 07/14/18 21:15 - Microbiology Findings Microbiology Findings: Microbiology, Last 48 Hours 07/15/18 09:26 Blood Culture - Preliminary Peripheral Venipuncture Culture is incubating and being continuously monitored for growth. Final report to follow. 07/15/18 09:21 Blood Culture - Preliminary Peripheral Venipuncture Culture is incubating and being continuously monitored for growth. Final report to follow. - Clinical Findings Intake & Output: Intake & Output 07/14/18 07/15/18 07/15/18 23:59 07:59 15:59 Intake Total 357 / 357 1855 / 1855 200 / 200 Output Total 400 / 400 750 / 750 660 / 660 Balance -43 / -43 1105 / 1105 -460 / -460 Weight 93.2 kg
[2018-07-15 11:13] LABS: Magnesium 1.7 mg/dL (1.6-2.6); Phosphorous 1.6 mg/dL (2.7-4.5)
[2018-07-15] MEDS: cefTRIAXone 2,000 MG in Water for inj. (sterile) 20 ML 20 ML IVP SCH ×2 (12:17→12:42)
[2018-07-15] MEDS: Acetaminophen 325 MG TABLET PO PRN (12:48)
[2018-07-15] MEDS ORDERED: Tuberculin Skin Test (PPD) 5 TUB/0.1 ML VIAL ID ONE (13:40)
[2018-07-15] MEDS: Multivit/Ca/Min/Fe/FA 1 TAB TABLET PO SCH (14:27)
[2018-07-15] MEDS: Sodium Bicarbonate 75 MEQ in 0.45 % Sodium Chloride 1,000 ML IVC SCH ×2 (15:11→21:16)
--- NOTE | 2018-07-15 16:21 | Electrocardiograph Report ---
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
[2018-07-16] MEDS: Clindamycin 600 MG/50 ML 600 MG/50 ML IV.SOLN IVPB SCH ×2 (00:08→08:10)
[2018-07-16] MEDS: Acetaminophen 325 MG TABLET PO PRN (00:09)
[2018-07-16] MEDS: Sodium Bicarbonate 75 MEQ in 0.45 % Sodium Chloride 1,000 ML IVC SCH ×3 (02:21→08:48)
[2018-07-16 03:58] LABS: Basophils % 0.5 %; Eosinophils # 0.1 K/mcL (0.0-0.6); Hematocrit 34.2 % (37.5-50.1); Immature Granulocytes % 0.4 % (0-4); Lymphocytes # 1.9 K/mcL (0.6-4.6); Lymphocytes % 22.9 %; Mean Corpuscular HGB Conc 35.1 g/dL (31.6-35.5); Mean Corpuscular Hemoglobin 28.4 pg (28.0-33.3); Mean Corpuscular Volume 80.9 fL (83.0-100.0); Mean Platelet Volume 9.4 fL (9.4-12.4); Monocytes # 0.7 K/mcL (0.0-1.3); Monocytes % 8.8 %; Neutrophils # 5.5 K/mcL (1.6-8.9); Platelet Count 173 K/mcL (140-400); Red Blood Count 4.23 M/mcL (4.19-5.50); Red Cell Distribution Width 12.2 % (11.5-14.5); Segmented Neutrophils % 66.4 %
[2018-07-16 03:58] LABS: VBG Ionized Calcium 1.02 mmol/L (1.15-1.35)
[2018-07-16 04:12] LABS: BUN/Creatinine Ratio 8 (6-26); Blood Urea Nitrogen 4 mg/dL (6-20); Calcium 7.9 mg/dL (8.6-10.3); Carbon Dioxide 29 mEq/L (23-29); Chloride 105 mEq/L (98-107); Glucose 122 mg/dL (70-105); Osmolality,Calculated 286 (280-300); Potassium 3.2 mEq/L (3.5-5.1); Sodium 139 mEq/L (136-145); eGFR For Non-African Americans > 60 (> 60)
[2018-07-16 04:50] LABS: Magnesium 1.8 mg/dL (1.6-2.6); Phosphorous 2.5 mg/dL (2.7-4.5)
[2018-07-16] MEDS: *HR* Heparin 5,000 UNIT/ML VIAL SQ SCH ×2 (05:35→17:07)
[2018-07-16] MEDS: 0.9 % Sodium Chloride 1,000 ML IVC SCH ×2 (07:34)
--- NOTE | 2018-07-16 07:34 | Pulmonology Progress Note ---
<Carlos Naranjo - Last Filed: 07/16/18 10:10> Date of Encounter: 07/16/18 Time of Encounter: 07:33 Assessment and Plan (1) Drug overdose Current Visit: Yes Status: Acute UDS positive for Benzos, meth, marijuana. Continue multivitamins, discontinue CIWA protocol Continue supportive care, social work nurse consulted Anticipate transfer out of ICU today. Qualifiers: Encounter type: initial encounter Injury intent: accidental or unintentional Qualified Code(s): T50.901A - Poisoning by unspecified drugs, medicaments and biological substances, accidental (unintentional), initial encounter (2) Aspiration pneumonia Current Visit: Yes Status: Acute Patient was found down in the setting of drug overdose, likely aspiration PNA CXR revealed RUL PNA There is concern for TB as patient was recently incarcerated, PPD skin test ordered, do not feel that he is high risk to merit negative pressure/N95 precautions Blood cultures negative Continue Clindamycin (Day 3) Regular diet ordered. Patient is tolerating PO intake without difficulty or aspiration. Qualifiers: Aspiration pneumonia type: due to gastric secretions Laterality: right Lung location: upper lobe of lung Qualified Code(s): J69.0 - Pneumonitis due to inhalation of food and vomit (3) Rhabdomyolysis Current Visit: Yes Status: Acute CK level was >20,000 in the setting of drug overdose/ immobilization Improving Discontinue IVF, tolerating adequate PO intake Nephrology signed off Continue monitoring, renal function stable Qualifiers: Rhabdomyolysis type: non-traumatic Qualified Code(s): M62.82 - Rhabdomyolysis (4) Hypokalemia Current Visit: Yes Status: Acute Ionized calcium low Supplement potassium, Mag level WNL Continue monitoring (5) Hypophosphatemia Current Visit: Yes Status: Acute Supplement phos Continue monitoring (6) DVT prophylaxis Current Visit: Yes Status: Acute Heparin subQ BID Subjective Principal diagnosis: Overdose Interval history: Patient seen and examined resting comfortably in bed. Patient is tolerating PO intake without difficulty or aspiration. No new events reported overnight. Nephrology signed off today. Anticipate transfer out of ICU today. Objective PUL Vital signs: Last Vital Signs Temp 98.4 F 07/16/18 05:58 Pulse 101 07/16/18 06:00 Resp 16 07/16/18 06:00 BP 129/66 07/16/18 03:00 Pulse Ox 96 07/15/18 17:54 General appearance: no acute distress Eyes: nonicteric ENT: oropharynx moist Mallampati (class): 4 Neck: supple, no JVD Effort: normal Auscultation: bilateral: clear Percussion: bilateral: not dull Cardiovascular: regular rate and rhythm (tachycardia) Gastrointestinal: normoactive bowel sounds, non-distended Integumentary: normal Extremities: no cyanosis, no edema, no clubbing Musculoskeletal: no deformities, ROM normal normal mental status, non-focal exam mood appropriate, affect normal Results - Laboratory Findings CBC and BMP: 07/16/18 03:43 07/16/18 03:43 Abnormal lab findings: Abnormal lab results Hgb 12.0 g/dL (12.9-16.9) L 07/16/18 03:43 Hct 34.2 % (37.5-50.1) L 07/16/18 03:43 MCV 80.9 fL (83.0-100.0) L 07/16/18 03:43 Potassium 3.2 mEq/L (3.5-5.1) L 07/16/18 03:43 BUN 4 mg/dL (6-20) L 07/16/18 03:43 Creatinine 0.50 mg/dL (0.70-1.30) L 07/16/18 03:43 Glucose 122 mg/dL (70-105) H 07/16/18 03:43 Calcium 7.9 mg/dL (8.6-10.3) L 07/16/18 03:43 Venous Ioniz Calcium 1.02 mmol/L (1.15-1.35) L 07/16/18 03:54 Phosphorus 2.5 mg/dL (2.7-4.5) L 07/16/18 03:43 Total Bilirubin 1.3 mg/dL (0.3-1.0) H 07/14/18 11:45 Direct Bilirubin 0.4 mg/dL (0.0-0.2) H 07/14/18 11:45 AST 95 Units/L (13-39) H 07/14/18 11:45 Creatine Kinase 2375 Units/L (30-223) H 07/16/18 03:43 Troponin I 0.04 ng/mL (< 0.04) H* 07/14/18 22:56 HDL Cholesterol 25 mg/dL (40-59) L 07/15/18 04:40 Lipase 3 Units/L (11-82) L 07/14/18 17:58 Urine Protein 30 mg/dL (Neg-Trace) H 07/14/18 21:15 Urine Ketones 80 mg/dL (Negative) H 07/14/18 21:15 Urine Blood Small (Negative) H 07/14/18 21:15 Urine Microscopic RBC 3-5 per hpf (0-3) H 07/14/18 21:15 Urine Microscopic WBC 3-5 per hpf (0-3) H 07/14/18 21:15 Ur Squamous Epith Cells Moderate per lpf (None-Few) H 07/14/18 21:15 Salicylates < 2.5 mg/dL (15.0-30.0) L 07/14/18 11:45 Acetaminophen < 10 mcg/mL (10-20) L 07/14/18 11:45 Ur Amphetamines Screen Positive ng/mL (Eobctb=1093) H 07/14/18 21:15 U Benzodiazepines Scrn Positive ng/mL (Hupfon=692) H 07/14/18 21:15 U Marijuana (THC) Screen Positive ng/mL (Cutoff = 50) H 07/14/18 21:15 - Microbiology Findings Microbiology Findings: Microbiology, Last 48 Hours 07/15/18 09:26 Blood Culture - Preliminary Peripheral Venipuncture Culture is incubating and being continuously monitored for growth. Final report to follow. 07/15/18 09:21 Blood Culture - Preliminary Peripheral Venipuncture Culture is incubating and being continuously monitored for growth. Final report to follow. - Diagnostic Findings Additional studies: ITS Impressions Head CT 07/14/18 11:32 IMPRESSION: Negative CT brain with no acute intracranial abnormality. Incidental sinusitis as described D/ / Susana Henderson MD / Susana Henderson MD Interpreting Provider: Susana Henderson MD Cervical Spine CT 07/14/18 11:33 IMPRESSION: 1. Unremarkable appearance of the cervical spine. 2. Partially visualized extensive right upper lobe opacification. Possible right supraclavicular and mediastinal adenopathy. Findings may relate to pneumonia with reactive adenopathy however recommend contrast-enhanced CT examination of the chest for further assessment. D/ / Susana Henderson MD / Susana Henderson MD Interpreting Provider: Susana Henderson MD Chest X-Ray 07/14/18 11:35 IMPRESSION: Right upper lobe pneumonia D/ / Doug Nicholas MD / Doug Nicholas MD Interpreting Provider: Doug Nicholas MD - Clinical Findings Intake & Output: Intake & Output 07/15/18 07/15/18 07/16/18 15:59 23:59 07:59 Intake Total 1180 / 1180 3420 / 3420 2115 / 2115 Output Total 660 / 660 1200 / 1200 600 / 600 Balance 520 / 520 2220 / 2220 1515 / 1515 Consult Discharge Plan - Plan Referrals: NONE,PCP [Primary Care Provider] - <Stephen Dai W - Last Filed: 07/16/18 13:17> Date of Encounter: 07/16/18 Objective PUL Vital signs: Last Vital Signs Temp 97.3 F L 07/16/18 10:54 Pulse 111 07/16/18 10:54 Resp 16 07/16/18 10:54 BP 136/73 07/16/18 10:54 Pulse Ox 99 07/16/18 10:54 Results - Laboratory Findings CBC and BMP: 07/16/18 03:43 07/16/18 10:48 Abnormal lab findings: Abnormal lab results Hgb 12.0 g/dL (12.9-16.9) L 07/16/18 03:43 Hct 34.2 % (37.5-50.1) L 07/16/18 03:43 MCV 80.9 fL (83.0-100.0) L 07/16/18 03:43 BUN 4 mg/dL (6-20) L 07/16/18 03:43 Creatinine 0.50 mg/dL (0.70-1.30) L 07/16/18 03:43 Glucose 122 mg/dL (70-105) H 07/16/18 03:43 Calcium 7.9 mg/dL (8.6-10.3) L 07/16/18 03:43 Venous Ioniz Calcium 1.11 mmol/L (1.15-1.35) L 07/16/18 11:25 Phosphorus 2.5 mg/dL (2.7-4.5) L 07/16/18 03:43 Total Bilirubin 1.3 mg/dL (0.3-1.0) H 07/14/18 11:45 Direct Bilirubin 0.4 mg/dL (0.0-0.2) H 07/14/18 11:45 AST 95 Units/L (13-39) H 07/14/18 11:45 Creatine Kinase 2375 Units/L (30-223) H 07/16/18 03:43 Troponin I 0.04 ng/mL (< 0.04) H* 07/14/18 22:56 HDL Cholesterol 25 mg/dL (40-59) L 07/15/18 04:40 Lipase 3 Units/L (11-82) L 07/14/18 17:58 Urine Protein 30 mg/dL (Neg-Trace) H 07/14/18 21:15 Urine Ketones 80 mg/dL (Negative) H 07/14/18 21:15 Urine Blood Small (Negative) H 07/14/18 21:15 Urine Microscopic RBC 3-5 per hpf (0-3) H 07/14/18 21:15 Urine Microscopic WBC 3-5 per hpf (0-3) H 07/14/18 21:15 Ur Squamous Epith Cells Moderate per lpf (None-Few) H 07/14/18 21:15 Nasal Screen MRSA (PCR) Positive (Negative) A 07/16/18 08:25 Salicylates < 2.5 mg/dL (15.0-30.0) L 07/14/18 11:45 Acetaminophen < 10 mcg/mL (10-20) L 07/14/18 11:45 Ur Amphetamines Screen Positive ng/mL (Moqiao=4661) H 07/14/18 21:15 U Benzodiazepines Scrn Positive ng/mL (Flmiyw=767) H 07/14/18 21:15 U Marijuana (THC) Screen Positive ng/mL (Cutoff = 50) H 07/14/18 21:15 - Microbiology Findings Microbiology Findings: Microbiology, Last 48 Hours 07/16/18 07:50 Sputum Culture - Preliminary Sputum 07/15/18 09:26 Blood Culture - Preliminary Peripheral Venipuncture Culture is incubating and being continuously monitored for growth. Final report to follow. 07/15/18 09:21 Blood Culture - Preliminary Peripheral Venipuncture Culture is incubating and being continuously monitored for growth. Final report to follow. - Clinical Findings Intake & Output: Intake & Output 07/15/18 07/16/18 07/16/18 23:59 07:59 15:59 Intake Total 3420 / 3420 2115 / 2115 710 / 710 Output Total 1200 / 1200 600 / 600 900 / 900 Balance 2220 / 2220 1515 / 1515 -190 / -190 - Attending Attestation I examined this patient and my medical decision-making was reviewed with the Resident Physician. I agree with the documented findings, disposition and treatment plan as described except to the extent set forth below. We independently had [id number] contact with the patient Patient seen and examined at bedside Labs, radiology, chart personally reviewed. Impression: 1. Drug Overdose 2. Aspiration PNA 3. Rhabdomyolysis Recs: -Continue antibiotics (clindamycin) to complete 5-7 day course (WBC trending d own) -director of career services consult -Rhabdomyolysis is improving appreciate nephrology recommendations Stable for transfer out of ICU for ongoing care
[2018-07-16] MEDS: Multivit/Ca/Min/Fe/FA 1 TAB TABLET PO SCH ×2 (08:09→09:20)
[2018-07-16] MEDS: Pantoprazole 40 MG VIAL IVP SCH (08:10)
[2018-07-16] MEDS ORDERED: Ondansetron 4 MG/2 ML VIAL IVP PRN (08:45)
[2018-07-16] MEDS ORDERED: Naloxone 0.4 MG/ML INJ IVP PRN (08:45)
[2018-07-16] MEDS ORDERED: *HR* Metoprolol 5 MG/5 ML VIAL IVP PRN (08:45)
[2018-07-16] MEDS ORDERED: Sodium Bicarbonate 75 MEQ in 0.45 % Sodium Chloride 1,000 ML IVC SCH (08:45)
[2018-07-16] MEDS ORDERED: Acetaminophen 325 MG TABLET PO PRN (08:45)
--- NOTE | 2018-07-16 09:13 | Nephrology Progress Note ---
Date of Encounter: 07/16/18 Time of Encounter: 07:25 - Assessment and Plan (1) Rhabdomyolysis Current Visit: Yes Status: Acute SCr remains stable and with the IVF at high flow, this has helped prevent SOURAV. Plus his serum CK has rapidly improved. As expected with higher flow IVF, he did develop some hypokalemia and hypocalcemia, for which he has an 'lyte replacement protocol already ordered. No need for [employer]ER. Yesterday he had mentioned to me that he had recently had an argumentative phone call with his mother; consider Psych eval. Discussed with the ICU team and the hospitalist. Thank you for consulting the [facility]; will sign-off. Please feel free to call or page me with any questions. Qualifiers: Rhabdomyolysis type: non-traumatic Qualified Code(s): M62.82 - Rhabdo myolysis (2) Metabolic acidosis Current Visit: Yes Status: Acute Improving. (3) Hypocalcemia Current Visit: Yes Status: Acute See above. (4) Drug overdose Current Visit: Yes Status: Acute Qualifiers: Encounter type: initial encounter Injury intent: accidental or unintentional Qualified Code(s): T50.901A - Poisoning by unspecified drugs, medicaments and biological substances, accidental (unintentional), initial encounter (5) Hypokalemia Current Visit: Yes Status: Acute Subjective Principal diagnosis: Overdose Interval history: Pt was s/e earlier today. He reported feeling better and less shaky. He did not affirm N/V this AM. Objective - Vital Signs Vital signs: Vital Signs Temp Pulse Resp BP Pulse Ox 07/16/18 07:42 100.3 F H 114 16 136/86 07/16/18 06:00 101 16 07/16/18 05:58 98.4 F 07/16/18 05:00 97 16 07/16/18 04:04 99.0 F 07/16/18 04:00 96 16 07/16/18 03:47 105 07/16/18 03:00 98 16 129/66 07/16/18 02:06 99.0 F 07/16/18 02:00 99 16 07/16/18 01:00 112 16 07/16/18 00:02 100.8 F H 07/16/18 00:00 121 16 120/67 07/15/18 23:04 105 07/15/18 23:00 124 16 113/55 07/15/18 22:10 98.9 F 07/15/18 22:00 117 26 114/63 07/15/18 21:00 109 22 141/77 07/15/18 20:06 98.2 F 07/15/18 20:00 111 22 107/43 07/15/18 19:21 105 07/15/18 17:54 13 110/56 96 07/15/18 17:00 103/50 07/15/18 16:00 24 99/55 96 07/15/18 15:00 22 106/58 97 07/15/18 14:00 122 24 111/49 99 07/15/18 13:00 30 113/46 07/15/18 12:00 102.2 F H 134 30 124/52 94 07/15/18 11:00 130 23 107/62 07/15/18 10:00 100.3 F H 126 27 108/64 97 Intake and Output 07/15/18 07/16/18 07/16/18 23:59 07:59 15:59 Intake Total 3420 / 3420 2115 / 2115 710 / 710 Output Total 1200 / 1200 600 / 600 500 / 500 Balance 2220 / 2220 1515 / 1515 210 / 210 Intake: IV Fluids 2460 / 2460 1635 / 1635 50 / 50 Sodium Bicarbonate 75 MEQ In 0. 2150 / 2150 1475 / 1475 0 / 0 45% Sodium Chloride 1000 Ml 1000 Ml 1,000 ML @ 200 mls/hr IVC .[id number] [facility] Rx#:[id number] Calcium Gluconate 1,000 MG In 0 110 / 110 .9 % Sodium Chloride 100 ML @ 220 mls/hr IVPB Q6HR PRN Rx#: [id number] Cleocin Premix 600 MG/50 ML 600 50 / 50 50 / 50 50 / 50 mg In 50 ml @ 50 mls/hr IVPB Q8HR [facility] Rx#:[id number] Sodium Phosphate 30 MMOL In 0.9 260 / 260 % Sodium Chloride 250 ML @ 42 mls/hr IVPB Q12H PRN Rx#: [id number] Oral 960 / 960 480 / 480 660 / 660 Output: Urine 1200 / 1200 600 / 600 500 / 500 Other: Meal snack 2 puddings sandwich snack Breakfast Percent of Meal Consumed 100% 100% 100% Stool Size Large Stool Consistency soft # Bowel Movements 1 - General Appearance General appearance: Present: well-developed EENT: Present: mucous membranes moist Neck: Present: supple Respiratory: Present: clear Cardiology: Present: no edema, normal S1, normal S2 Gastrointestinal: Present: no tenderness. Absent: distended Integumentary: Present: rash (multiple abrasions on face and body) Neurologic: Present: no focal deficit Psychiatric: Present: cooperative - Lab 07/16/18 03:43 07/16/18 03:43 Most recent lab results Calcium 7.9 mg/dL (8.6-10.3) L 07/16/18 03:43 Phosphorus 2.5 mg/dL (2.7-4.5) L 07/16/18 03:43 Magnesium 1.8 mg/dL (1.6-2.6) 07/16/18 03:43 Consult Discharge Plan - Plan Referrals: NONE,PCP [Primary Care Provider] -
[2018-07-16 11:27] LABS: Magnesium 1.8 mg/dL (1.6-2.6); Potassium 3.5 mEq/L (3.5-5.1)
[2018-07-16 11:29] LABS: VBG Ionized Calcium 1.11 mmol/L (1.15-1.35)
[2018-07-16] MEDS ORDERED: Saline Nasal Spray 44 ML BOTTLE NS PRN (19:24)
[2018-07-17 04:56] LABS: Hematocrit 35.7 % (37.5-50.1); Mean Corpuscular HGB Conc 33.6 g/dL (31.6-35.5); Mean Corpuscular Hemoglobin 27.8 pg (28.0-33.3); Mean Corpuscular Volume 82.8 fL (83.0-100.0); Mean Platelet Volume 9.6 fL (9.4-12.4); Platelet Count 191 K/mcL (140-400); Red Blood Count 4.31 M/mcL (4.19-5.50); Red Cell Distribution Width 12.2 % (11.5-14.5)
[2018-07-17 05:14] LABS: BUN/Creatinine Ratio 14 (6-26); Blood Urea Nitrogen 7 mg/dL (6-20); Calcium 8.2 mg/dL (8.6-10.3); Carbon Dioxide 28 mEq/L (23-29); Chloride 107 mEq/L (98-107); Glucose 129 mg/dL (70-105); Osmolality,Calculated 290 (280-300); Phosphorous 4.7 mg/dL (2.7-4.5); Potassium 3.4 mEq/L (3.5-5.1); Sodium 140 mEq/L (136-145); eGFR For Non-African Americans > 60 (> 60)
[2018-07-17] MEDS: *HR* Heparin 5,000 UNIT/ML VIAL SQ SCH ×2 (05:29→18:02)
[2018-07-17] MEDS: Multivit/Ca/Min/Fe/FA 1 TAB TABLET PO SCH (09:17)
--- NOTE | 2018-07-17 10:47 | Internal Med Progress Note ---
Hospitalist Progress Note - Encounter Date of Encounter: 07/17/18 Time of Encounter: 10:44 - Subjective Interval History: Patient is sleeping but easily arousable. Has been communicative but also appear restless at the same time. Alert awake oriented 3 with no suicidal or homicidal thoughts and plan. Reviewed the lab with trending down CPK. Denies fever chills nausea vomiting headache dizziness chest pain or cough abdominal pain urinary bowel complaint - Exam Vitals: Temp Pulse Resp BP Pulse Ox 98.1 F 87 18 112/71 97 07/17/18 06:37 07/17/18 06:37 07/17/18 06:37 07/17/18 06:37 07/17/18 06:37 Exam: General appearance: No acute distress. Eye exam: PERRLA EOMI ENT exam: Moist oral mucosa with poor dentition Neck nontender, supple Respiratory exam: Clear to auscultation bilaterally Cardiovascular exam: Regular rate and regular rhythm, no systolic murmur Abdominal exam: Soft, nontender, nondistended, positive bowel sounds Extremities exam: No calf tenderness, no pedal edema Present: Multiple scabs on face and other body part especially extremities with linear scratch willem and face-healing Neurological exam: Alert awake oriented 3. Cranial 2-12 intact with no focal neurological deficit. Motor 5 x 5 in all 4 extremities Psych-appear restless and anxious but no suicidal homicidal thoughts and - Assessment and Plan (1) Drug overdose Current Visit: Yes Status: Acute Assessment and Plan: Possibly methamphetamine with unknown quantity and unknown intervention. Urine drug screen positive for amphetamine, benzodiazepine, marijuana. Alcohol level less than 10. Initially patient was in ICU and eventually transferred out to the floor. CT head with no acute finding. Consulted inpatient psych service for further evaluation and recommendation. Tetanus shot given in the ER (2) Rhabdomyolysis Current Visit: Yes Status: Acute Assessment and Plan: Improving. Pending down CPK level. Financial Aid Officer was consulted and he r ecommended high flow volume and patient responded well. Normal creatinine level. Medically stable from nephrostend point. (3) Pneumonia Current Visit: Yes Status: Suspected Assessment and Plan: Possibility of aspiration pneumonia. Chest x-ray with right upper lobe pneumonia. There was concern for TB as patient was recently incarcerated therefore pulmonologists consulted and did not feel the need to keep patient in negative pressure isolation on clinical evaluation .PPD skin ordered. Blood culture-no growth yet Continue clindamycin day for Tolerating oral diet without difficulty. Maintenance MRSA positive (4) Tachycardia Current Visit: Yes Status: Acute Assessment and Plan: Resolved. Echocardiogram with no acute finding. (5) Leucocytosis Current Visit: Yes Status: Acute Assessment and Plan: Resolved now. Possible sepsis, On admission SIRS criteria- 101.5, tachycardia, tachypnea, leukocytosis. Lactate normal. Blood culture, urine culture with no growth. Continue clindamycin. Nasal swab positive for MRSA. Contact isolation (6) Hypokalemia Current Visit: Yes Status: Acute Assessment and Plan: Replacement and monitor (7) Fever Current Visit: Yes Status: Acute Assessment and Plan: No no fever. Tylenol when necessary (8) DVT prophylaxis Current Visit: Yes Status: Acute Assessment and Plan: Heparin subcutaneous (9) Goals of care, counseling/discussion Current Visit: Yes Status: Acute Assessment and Plan: Plan to discharge patient possibly tomorrow after getting recommendation from psychiatrist. - Time Spent with Patient Total time spent is greater than 50% in coordination of care (as documented) at patient's floor/unit and/or counseling patient: 25 - 35 minutes Internal Medicine: Result - Labs CBC & Chem 7: 07/17/18 04:32 07/17/18 04:32 Labs: Short CBC 07/17/18 Range/Units 04:32 WBC 5.1 (4.3-11.1) K/mcL Hgb 12.0 L (12.9-16.9) g/dL Hct 35.7 L (37.5-50.1) % Plt Count 191 (140-400) K/mcL [facility] 07/16/18 07/17/18 10:48 04:32 Sodium 140 Potassium 3.5 3.4 L Chloride 107 Carbon Dioxide 28 BUN 7 Creatinine 0.51 L Glucose 129 H Calcium 8.2 L Consult Discharge Plan - Plan Referrals: Afshin Sanabria MD [Partnered Physician] - 08/03/18 8:30 am (1) Drug overdose Qualifiers: Encounter type: initial encounter Injury intent: accidental or unintentional Qualified Code(s): T50.901A - Poisoning by unspecified drugs, medicaments and biological substances, accidental (unintentional), initial encounter (2) Rhabdomyolysis Qualifiers: Rhabdomyolysis type: non-traumatic Qualified Code(s): M62.82 - Rhabdomyolysis (3) Pneumonia Qualifiers: Pneumonia type: aspiration pneumonia Aspiration pneumonia type: due to gastric secretions Laterality: right Lung location: upper lobe of lung Qualified Code(s): J69.0 - Pneumonitis due to inhalation of food and vomit (5) Leucocytosis Qualifiers: Leukocytosis type: unspecified Qualified Code(s): D72.829 - Elevated white blood cell count, unspecified (7) Fever Qualifiers: Fever type: unspecified Qualified Code(s): R50.9 - Fever, unspecified
--- NOTE | 2018-07-17 12:15 | Consult Note ---
Date of Encounter: 07/17/18 Time of Encounter: 12:00 Assessment & Recommendation (1) Methamphetamine use disorder, severe Current visit: Yes Status: Acute History of Present Illness Requesting Physician: Araceli Mercado Reason for consult: drug overdose History of present illness: Mr. Yoo is a 23 year old male who presents for methamphetamine use D/O and overdose. Pt noted he currently lives in [place], [place] with my mom. Pt noted recent exacerbation of methamphetamine use. Pt denied any suicidal intentions, "just took too much." Pt noted I feel soooo much better, I am ready to go home. Pt noted he feels safe and comfortable for discharge home. Pt denied any side effects to current medications. Pt was in agreement with current treatment plan. Pt noted that he is doing alright today. Pt noted he slept 8 hours. Pt noted his appetite is much better. Pt rated his depression a 0, on a scale of zero to ten with ten being the worst and zero being none. Pt rate his anxiety a 0, on the same scale. Pt denied any auditory or visual hallucinations. Pt denied any current thoughts to harm himself or anyone else. Patient noted a significant reeducation in his cravings for methamphetamines during his stay at [facility]. Pt noted that he slowly improved to the point that he was comfortable and safe to D/C home. Pt noted he felt his medications were working well and denied any current side effects. Treatment team encouraged Pt to stay out of bed and try to find activities to do, verbalized understanding. pt reported that he felt safe on the unit and comfortable for Home with his family. Pt Denied suicidal/homicidal ideations, denied any problems or concerns with medications or side effects. PT voiced progression towards treatment goals and was offered a copy of updated treatment plan completed during visit today. Denied any immediate needs or concerns. Pt denied any access to guns or weapons. Pt throughout his stay on [facility] psych pt felt like his medications were working and felt comfortable being discharged on these medications. Pt was advised to take all medications as prescribed, follow up with all scheduled appointments and abstain from any alcohol or illicit substances. Pt was in agreement. Pt felt safe and comfortable to be discharged to his home and follow up with out mental health. Pt was very optimistic about his D/C. Pt felt safe and comfortable for D/C. The patient was educated primarily by verbal means about his diagnoses and their manifestations in his life. The option for treatment including group individual therapy programming was offered to his and the use of medications with all their potential risks, benefits, and side-effects were discussed with the [facility]. Pt was given the opportunity to ask questions and he participated in the treatment and planning process. Pt felt ready and eager to be discharged from the from [facility] to be discharged home. Pt felt he was safe for this disposition. Pt was considered to be able to participate in informed consent and decision- making with respect to medical, legal and financial issues at the time of his discharge. Assessment/Plan 1. Interval hx 2. Continue current medications 3. Review current labs 4. Pt had an opportunity to ask questions and discuss current treatment plan. 5. Supportive therapy was provided 6. Pt encouraged to consider group or individual therapy 7. Pt was in agreement with treatment plan. 8. Pt was educated on the risks benefits and side effects of current medications. 9. Continue to Coordinate with [facility] (apt scheduled per pt) for substance abuse treatment. 10 abstain from any alcohol or illict substances. 11. follow up with all sheduled appointments. 12. D/C Pt home CC: Araceli Mercado Past Med Surg Social Fam HX - Past Medical History Medical history: no medical history - Past Psychiatric History Psychiatric history: Reports: no psych history Family psychiatric history: No Family History of Suicide: None - Social History Smoking Status: Current every day smoker Smokeless Tobacco Status: No Alcohol use: occasionally Drug use: methamphetamine Medications & Allergies Unable To Obtain [Unable to Obtain] 07/14/18 [History] Allergy/AdvReac Type Severity Reaction Status Date / Time Penicillins [PCN] Allergy Rash Verified 07/15/18 13:47 Review of Systems Constitutional: Denies: fever, chills, weakness, weight change Eyes: Denies: eye pain, vision change Ears, Nose, Throat: Denies: ear pain, throat pain, dental pain, hearing loss, congestion Cardiovascular: Denies: chest pain, palpitations, dyspnea on exertion Respiratory: Denies: cough, dyspnea, wheezes Gastrointestinal: Denies: abdominal pain, nausea, vomiting, diarrhea, constipation Genitourinary male: Denies: urgency, dysuria, frequency, genital lesions Musculoskeletal: Denies: joint swelling, joint pain Integumentary: Denies: rash, lesions, pruritus Neurological: Denies: headache, weakness, numbness, memory loss Psychiatric: Reports: other (substance abuse) Endocrine: Denies: fatigue, heat or cold intolerance Hematologic/Lymphatic: Denies: easy bruising, lymphadenopathy Allergic/Immunologic: Denies: urticaria, itchy eyes Psychiatry Exam - Constitutional Vitals: Temp Pulse Resp BP Pulse Ox 98.7 F 94 18 135/72 95 07/17/18 10:42 07/17/18 10:42 07/17/18 10:42 07/17/18 10:42 07/17/18 10:42 General appearance: age & developmentally appropriate, well-groomed, well- nourished - Musculoskeletal Gait: normal Station: relaxed Strength & Tone: normal for patient - Psychiatric Patient Orientation: Yes Person, Yes Time, Yes Place Level of alertness: Alert Behavior: calm, cooperative Psychomotor activity: Normal Eye Contact: Maintains Eye Contact Mood Description: Euthymic/stable Affect description: congruent with mood, full range Speech Volume: Normal Speech pattern: normal rate, normal rhythm, normal tone, fluent, spontaneous Language & Vocabulary: consistent with education Thought Process: Linear, Goal Oriented Thought Content: No Suicidal ideation, No Homicidal ideation, No Overt delusions Perceptual Disturbances: No Auditory hallucinations, No Visual hallucinations Attention Span Ability: Capable of Focused Attention Memory Description: Grossly Intact Patient Reliability: Reliable Historian Fund of knowledge: Yes abstraction ability, Yes aware of current events Intelligence Estimate: Average Judgment: Limited Insight: Partial Results - Labs Labs: Laboratory Last Values WBC 5.1 K/mcL (4.3-11.1) 07/17/18 04:32 RBC 4.31 M/mcL (4.19-5.50) 07/17/18 04:32 Hgb 12.0 g/dL (12.9-16.9) L 07/17/18 04:32 Hct 35.7 % (37.5-50.1) L 07/17/18 04:32 MCV 82.8 fL (83.0-100.0) L 07/17/18 04:32 MCH 27.8 pg (28.0-33.3) L 07/17/18 04:32 MCHC 33.6 g/dL (31.6-35.5) 07/17/18 04:32 RDW 12.2 % (11.5-14.5) 07/17/18 04:32 Plt Count 191 K/mcL (140-400) 07/17/18 04:32 MPV 9.6 fL (9.4-12.4) 07/17/18 04:32 Immature Gran % 0.4 % (0-4) 07/16/18 03:43 Seg Neutrophils % 66.4 % 07/16/18 03:43 Lymphocytes % 22.9 % 07/16/18 03:43 Monocytes % 8.8 % 07/16/18 03:43 Eosinophils % 1.0 % 07/16/18 03:43 Basophils % 0.5 % 07/16/18 03:43 Neutrophils # 5.5 K/mcL (1.6-8.9) 07/16/18 03:43 Lymphocytes # 1.9 K/mcL (0.6-4.6) 07/16/18 03:43 Monocytes # 0.7 K/mcL (0.0-1.3) 07/16/18 03:43 Eosinophils # 0.1 K/mcL (0.0-0.6) 07/16/18 03:43 Basophils # 0.0 K/mcL (0.0-0.2) 07/16/18 03:43 Sodium 140 mEq/L (136-145) 07/17/18 04:32 Potassium 3.4 mEq/L (3.5-5.1) L 07/17/18 04:32 Chloride 107 mEq/L (98-107) 07/17/18 04:32 Carbon Dioxide 28 mEq/L (23-29) 07/17/18 04:32 BUN 7 mg/dL (6-20) 07/17/18 04:32 Creatinine 0.51 mg/dL (0.70-1.30) L 07/17/18 04:32 Est GFR ( Amer) > 60 (> 60) 07/17/18 04:32 Est GFR (Non-Af Amer) > 60 (> 60) 07/17/18 04:32 BUN/Creatinine Ratio 14 (6-26) 07/17/18 04:32 Glucose 129 mg/dL (70-105) H 07/17/18 04:32 POC Glucose 75 mg/dL (70-99) 07/14/18 17:48 Serum Osmolality 287 mOsm/kg (280-300) 07/15/18 09:25 Calculated Osmolality 290 (280-300) 07/17/18 04:32 Lactic Acid 0.5 mmol/L (0.5-2.2) 07/14/18 17:58 Calcium 8.2 mg/dL (8.6-10.3) L 07/17/18 04:32 Venous Ioniz Calcium 1.11 mmol/L (1.15-1.35) L 07/16/18 11:25 Phosphorus 4.7 mg/dL (2.7-4.5) H 07/17/18 04:32 Magnesium 1.8 mg/dL (1.6-2.6) 07/16/18 10:48 Total Bilirubin 1.3 mg/dL (0.3-1.0) H 07/14/18 11:45 Direct Bilirubin 0.4 mg/dL (0.0-0.2) H 07/14/18 11:45 Indirect Bilirubin 0.9 mg/dL (0.0-1.2) 07/14/18 11:45 AST 95 Units/L (13-39) H 07/14/18 11:45 ALT 44 Units/L (7-52) 07/14/18 11:45 Alkaline Phosphatase 48 Units/L (34-104) 07/14/18 11:45 Creatine Kinase 1496 Units/L (30-223) H 07/17/18 04:32 Troponin I 0.04 ng/mL (< 0.04) H* 07/14/18 22:56 Serum Total Protein 7.8 g/dL (6.4-8.9) 07/14/18 11:45 Albumin 4.6 g/dL (3.5-5.7) 07/14/18 11:45 Globulin 3.2 g/dL (2.4-3.5) 07/14/18 11:45 Albumin/Globulin Ratio 1.4 (1.1-2.2) 07/14/18 11:45 Triglycerides 41 mg/dL (< 150) 07/15/18 04:40 Cholesterol 60 mg/dL (< 200) 07/15/18 04:40 LDL Cholesterol, Calc 27 mg/dL (0-99) 07/15/18 04:40 VLDL Cholesterol, Calc 8 mg/dL (< 31) 07/15/18 04:40 HDL Cholesterol 25 mg/dL (40-59) L 07/15/18 04:40 Cholesterol/HDL Ratio 2.4 (0-4.9) 07/15/18 04:40 Lipase 3 Units/L (11-82) L 07/14/18 17:58 Urine Color Yellow (Yellow) 07/14/18 21:15 Urine Clarity Clear (Clear) 07/14/18 21:15 Urine pH 6.0 pH Units (5.0-8.0) 07/14/18 21:15 Ur Specific Whitman 1.020 (1.010-1.025) 07/14/18 21:15 Urine Protein 30 mg/dL (Neg-Trace) H 07/14/18 21:15 Urine Glucose (UA) Normal mg/dL (Normal) 07/14/18 21:15 Urine Ketones 80 mg/dL (Negative) H 07/14/18 21:15 Urine Blood Small (Negative) H 07/14/18 21:15 Urine Nitrite Negative (Negative) 07/14/18 21:15 Urine Bilirubin Negative (Negative) 07/14/18 21:15 Urine Urobilinogen Normal mg/dL (Normal) 07/14/18 21:15 Ur Leukocyte Esterase Negative (Negative) 07/14/18 21:15 Urine Microscopic RBC 3-5 per hpf (0-3) H 07/14/18 21:15 Urine Microscopic WBC 3-5 per hpf (0-3) H 07/14/18 21:15 Ur Squamous Epith Cells Moderate per lpf (None-Few) H 07/14/18 21:15 Urine Bacteria None Seen per hpf (None-Few) 07/14/18 21:15 Hyaline Casts None Seen per lpf (None-Few) 07/14/18 21:15 Urine Sperm Present 07/14/18 21:15 Ur Culture Indicated? NO (NO) 07/14/18 21:15 Nasal Screen MRSA (PCR) Positive (Negative) A 07/16/18 08:25 Salicylates < 2.5 mg/dL (15.0-30.0) L 07/14/18 11:45 Urine Opiates Screen Negative ng/mL (Betjcl=091) 07/14/18 21:15 Acetaminophen < 10 mcg/mL (10-20) L 07/14/18 11:45 Ur Barbiturates Screen Negative ng/mL (Lxqalr=390) 07/14/18 21:15 Ur Phencyclidine Scrn Negative ng/mL (Cutoff=25) 07/14/18 21:15 Ur Amphetamines Screen Positive ng/mL (Jkazqi=2685) H 07/14/18 21:15 U Benzodiazepines Scrn Positive ng/mL (Bfwkig=862) H 07/14/18 21:15 Urine Cocaine Screen Negative ng/mL (Cutoff= 300) 07/14/18 21:15 U Marijuana (THC) Screen Positive ng/mL (Cutoff = 50) H 07/14/18 21:15 Ur Drug Screen Interp See Below 07/14/18 21:15 Ethyl Alcohol < 10 mg/dL (Less than 10) 07/14/18 11:45 Consult Discharge Plan - Plan Additional Instructions: Coordinate followup with outpt mental health for substance abuse once medically stable D/C pt home. Referrals: Afshin Sanabria MD [Partnered Physician] - 08/03/18 8:30 am
[2018-07-18 04:58] LABS: Basophils # 0.1 K/mcL (0.0-0.2); Basophils % 0.9 %; Eosinophils # 0.5 K/mcL (0.0-0.6); Eosinophils % 7.8 %; Hematocrit 39.1 % (37.5-50.1); Hemoglobin 13.2 g/dL (12.9-16.9); Immature Granulocytes % 0.7 % (0-4); Lymphocytes # 2.2 K/mcL (0.6-4.6); Lymphocytes % 32.7 %; Mean Corpuscular HGB Conc 33.8 g/dL (31.6-35.5); Mean Corpuscular Hemoglobin 27.8 pg (28.0-33.3); Mean Corpuscular Volume 82.5 fL (83.0-100.0); Mean Platelet Volume 9.6 fL (9.4-12.4); Monocytes # 0.5 K/mcL (0.0-1.3); Monocytes % 7.8 %; Neutrophils # 3.3 K/mcL (1.6-8.9); Platelet Count 264 K/mcL (140-400); Red Blood Count 4.74 M/mcL (4.19-5.50); Red Cell Distribution Width 12.3 % (11.5-14.5); Segmented Neutrophils % 50.1 %
[2018-07-18 05:17] LABS: BUN/Creatinine Ratio 21 (6-26); Blood Urea Nitrogen 12 mg/dL (6-20); Calcium 8.8 mg/dL (8.6-10.3); Carbon Dioxide 30 mEq/L (23-29); Chloride 103 mEq/L (98-107); Glucose 109 mg/dL (70-105); Magnesium 1.6 mg/dL (1.6-2.6); Osmolality,Calculated 286 (280-300); Potassium 3.7 mEq/L (3.5-5.1); Sodium 138 mEq/L (136-145); eGFR For Non-African Americans > 60 (> 60)
[2018-07-18] MEDS: *HR* Heparin 5,000 UNIT/ML VIAL SQ SCH ×2 (05:57→18:39)
--- NOTE | 2018-07-18 06:22 | Event Note ---
Date of Encounter: 07/18/18 Time of Encounter: 06:20 - Nephrology Event Note Nephrology Chart Update Today's labs have consistently shown improvement in his Rhabdomyolysis, which is reassuring. His electrolytes have also improved. Okay to discharge at least biochemically, from a Nephrology perspective (will defer to Psych on his mental health and substance abuse stability). Please feel free to contact me if any questions regarding renal care. Thank you.
[2018-07-18] MEDS: Multivit/Ca/Min/Fe/FA 1 TAB TABLET PO SCH (09:32)
--- NOTE | 2018-07-18 10:05 | Discharge Summary ---
- NOTES TO OUTPATIENT PROVIDER Notes to Outpatient Provider: Follow-up with PCP in 2-3 days-long term care social worker needs to help in getting [id number] CPK within 1 week, follow final blood culture report. Follow-up with [facility](appointment is scheduled for patient) for substance abuse treatment. abstain from any alcohol or illict substances. Orders not resulted at time of discharge: Pending orders 07/15/18 09:26 Culture,Blood [BC] Stat 07/15/18 10:17 Sputum Culture [Culture,Sputum with Gram Stain] [RM] Stat 07/15/18 10:30 AFB Culture, Respiratory [TB] Stat AFB Smear [TB] Stat 07/19/18 04:00 CK [Creatine Kinase] AM 0400 07/20/18 04:00 CK [Creatine Kinase] AM 0400 Date of Encounter: 07/19/18 Time of Encounter: 12:30 - Discharge Diagnosis (1) Pneumonia Priority: Primary Status: Suspected Assessment and Plan: Possibility of aspiration pneumonia. Chest x-ray with right upper lobe pneumonia. There was concern for TB as patient was recently incarcerated therefore pulmonologists consulted and did not feel the need to keep patient in negative pressure isolation on clinical evaluation . PPD skin negative Blood culture-no growth yet sputum culture-staph + nasal swab +MRSA Talk to ID specialist on phone as this is weekend and not available in person. After discussing decided to discharge patient on clindamycin 600 mg 3 times a day and Bactrim DS one tablet by mouth twice a day for 10-14 days Qualifiers: Pneumonia type: aspiration pneumonia Aspiration pneumonia type: due to gastric secretions Laterality: right Lung location: upper lobe of lung Qualified Code(s): J69.0 - Pneumonitis due to inhalation of food and vomit (2) Drug overdose Priority: Primary Status: Acute Assessment and Plan: Possibly methamphetamine with unknown quantity . Patient denies any suicidal intention but wanted to feel high. Urine drug screen positive for amphetamine, benzodiazepine, marijuana. Alcohol level less than 10. Initially patient was in ICU and eventually transferred out to the floor. CT head with no acute finding. Consulted inpatient psych service -okay to discharge patient home from psych standpoint and continue to coordinate with [facility] for substance abuse treatment. Patient is not homicidal or suicidal at the time of discharge. Tetanus shot given in the ER Qualifiers: Encounter type: initial encounter Injury intent: accidental or unintentional Qualified Code(s): T50.901A - Poisoning by unspecified drugs, medicaments and biological substances, accidental (unintentional), initial encounter (3) Rhabdomyolysis Priority: Primary Status: Acute Assessment and Plan: Improving significantly. Waiter/Waitress Dining Car was consulted and he recommended high flow volume and patient responded well. Normal creatinine level, significant decrease in CPK. Advised to take plenty of fluid and avoid any illicit drug abuse. Follow with PCP to check CPK within 1 week. Medically stable from nephrostend point-okay to discharge. Qualifiers: Rhabdomyolysis type: non-traumatic Qualified Code(s): M62.82 - Rhabdomyolysis (4) Tachycardia Priority: Primary Status: Acute Assessment and Plan: Resolved. Echocardiogram with no acute finding. (5) Leucocytosis Priority: Primary Status: Acute Assessment and Plan: Resolved now. Possible sepsis, On admission SIRS criteria- 101.5, tachycardia, tachypnea, leukocytosis. Lactate normal. Blood culture, urine culture with no growth. Qualifiers: Leukocytosis type: unspecified Qualified Code(s): D72.829 - Elevated white blood cell count, unspecified (6) Hypokalemia Priority: Primary Status: Acute Assessment and Plan: Resolved (7) Fever Priority: Primary Status: Acute Assessment and Plan: No no fever. Qualifiers: Fever type: unspecified Qualified Code(s): R50.9 - Fever, unspecified Hospital course: Mr. Yoo is a 23 year old male patient got admitted after getting drug overdose with amphetamine diagnosed right upper lobe pneumonia secondary to a spiration most likely an rhabdomyolysis. Initially patient was in ICU and consulted oyster buyer and dispute resolution analyst. He was transferred out to floor after improvement. Inpatient psych was also consulted. Please see details in diagnosis section of discharge summary. At the time of discharge patient is clinically and hemodynamically stable with no fever normal white count significantly trending down CPK level tolerating oral diet ambulating well with no homicidal or suicidal thoughts and plan. Appear normal mood and less apprehensive. Discharge discussed with: patient - Time Spent with Patient Total time spent providing and/or coordinating discharge services: Less than 30 minutes - Discharge Medications Home Medications: Unable To Obtain [Unable to Obtain] 07/14/18 [History] Allergies/Adverse Reactions: Allergy/AdvReac Type Severity Reaction Status Date / Time Penicillins [PCN] Allergy Rash Verified 07/15/18 13:47 Date of admission: 07/14/18 16:38 Primary care physician: PCP NONE Consults: 07/14/18 16:55 Consult to Board Liner Operator [CONS] Routine Reason for SW Consult: Discharge plan 07/15/18 10:16 Consult to Pulmonology [CONS] Routine Consulting Provider: [facility] [place] Reason for Consult: Drug overdose with Right upper pneumonia concern for possible TB has been in half-way Call Completed: Yes 07/15/18 10:31 Consult to Respiratory Therapy [CONS] Routine Reason for Consult: Chest toileting Call Completed: No 07/17/18 10:42 Consult to Psychiatry [CONS] Routine Consulting Provider: Psychiatry [place] Reason consult: Psychosis Other reason and/or additional details: Drug overdose Call Completed: Yes - Constitutional Vitals: Temp Pulse Resp BP Pulse Ox 97.6 F 83 16 122/72 98 07/18/18 07:18 07/18/18 07:18 07/18/18 07:18 07/18/18 07:18 07/18/18 07:18 Exam: General appearance: No acute distress. Eye exam: PERRLA EOMI ENT exam: Moist oral mucosa Neck nontender, supple Respiratory exam: Clear to auscultation bilaterally Cardiovascular exam: Regular rate and regular rhythm, no systolic murmur Abdominal exam: Soft, nontender, nondistended, positive bowel sounds Extremities exam: No calf tenderness, no pedal edema Present: Multiple scabs on face and other body part especially extremities with linear scratch willem and face-healing Neurological exam: Alert awake oriented 3. Cranial 2-12 intact with no focal neurological deficit. Motor 5 x 5 in all 4 extremities Appeared relaxed and no suicidal homicidal thoughts and plan - Patient Status Disposition: Home, Self-Care Condition: Good Overall status at discharge: patient is progressing back to baseline - Discharge Instructions Follow Up With: Afshin Sanabria MD [Partnered Physician] - 08/03/18 8:30 am Additional Instructions: Coordinate followup with outpt mental health for substance abuse once medically stable D/C pt home. - Diet and Activity Activity: increase activity as tolerated Diet: advance to your usual diet
--- NOTE | 2018-07-18 17:10 | Internal Med Progress Note ---
Hospitalist Progress Note - Encounter Date of Encounter: 07/18/18 Time of Encounter: 17:07 - Subjective Interval History: Patient is sitting on bed watching TV. Alert awake oriented 3 with no suicidal or homicidal thoughts and plan. Reviewed the lab with trending down CPK and normal white count Sputum culture gram-positive cocci.. Denies fever chills nausea vomiting headache dizziness chest pain or cough abdominal pain urinary bowel complaint - Exam Vitals: Temp Pulse Resp BP Pulse Ox 98.1 F 87 17 118/64 96 07/18/18 16:02 07/18/18 16:02 07/18/18 16:02 07/18/18 16:02 07/18/18 16:02 Exam: General appearance: No acute distress. Eye exam: PERRLA EOMI ENT exam: Moist oral mucosa with poor dentition Neck nontender, supple Respiratory exam: Clear to auscultation bilaterally Cardiovascular exam: Regular rate and regular rhythm, no systolic murmur Abdominal exam: Soft, nontender, nondistended, positive bowel sounds Extremities exam: No calf tenderness, no pedal edema Present: Multiple scabs on face and other body part especially extremities with linear scratch willem and face-healing Neurological exam: Alert awake oriented 3. Cranial 2-12 intact with no focal neurological deficit. Motor 5 x 5 in all 4 extremities Psych-appear slight restless and anxious but no suicidal homicidal thoughts and - Assessment and Plan (1) Pneumonia Current Visit: Yes Status: Suspected Assessment and Plan: Possibility of aspiration pneumonia. Chest x-ray with right upper lobe pneumonia. There was concern for TB as patient was recently incarcerated therefore pulmonologists consulted and did not feel the need to keep patient in negative pressure isolation on clinical evaluation . PPD skin negative Blood culture-no growth yet sputum [id number] cocci but no final sensitivity report available Plan to discharge patient once final sensitivity report available and choose oral antibiotic appropriately. Will also consult ID specialist if needed. Patient wants to go home but after explaining above he agreed to stay. (2) Drug overdose Current Visit: Yes Status: Acute Assessment and Plan: Possibly methamphetamine with unknown quantity . Patient denies any suicidal intention but wanted to feel high. Urine drug screen positive for amphetamine, benzodiazepine, marijuana. Alcohol level less than 10. Initially patient was in ICU and eventually transferred out to the floor. CT head with no acute finding. Consulted inpatient psych service -okay to discharge patient home from psych standpoint and continue to coordinate with [facility] for substance abuse treatment. Patient is not homicidal or suicidal at this time Tetanus shot given in the ER (3) Rhabdomyolysis Current Visit: Yes Status: Acute Assessment and Plan: Improving significantly. Burr Grinder was consulted and he recommended high flow volume and patient responded well. Normal creatinine level, significant decrease in CPK. Advised to take plenty of fluid and avoid any illicit drug abuse. Follow with PCP to check CPK within 1 week. Medically stable from nephrostend point-okay to discharge. (4) Tachycardia Current Visit: Yes Status: Acute Assessment and Plan: Resolved. Echocardiogram with no acute finding. (5) Leucocytosis Current Visit: Yes Status: Acute Assessment and Plan: Resolved now. Possible sepsis, On admission SIRS criteria- 101.5, tachycardia, tachypnea, leukocytosis. Lactate normal. Blood culture, urine culture with no growth. Continue clindamycin. Nasal swab positive for MRSA. Contact isolation (6) Hypokalemia Current Visit: Yes Status: Acute Assessment and Plan: Resolved (7) Fever Current Visit: Yes Status: Acute Assessment and Plan: No no fever. Tylenol when necessary - Time Spent with Patient Total time spent is greater than 50% in coordination of care (as documented) at patient's floor/unit and/or counseling patient: 25 - 35 minutes Plan of Care Discussed with: patient Internal Medicine: Result - Labs CBC & Chem 7: 07/18/18 04:37 07/18/18 04:37 Labs: Short CBC 07/18/18 Range/Units 04:37 WBC 6.7 (4.3-11.1) K/mcL Hgb 13.2 (12.9-16.9) g/dL Hct 39.1 (37.5-50.1) % Plt Count 264 (140-400) K/mcL Neutrophils # 3.3 (1.6-8.9) K/mcL BMP 07/18/18 04:37 Sodium 138 Potassium 3.7 Chloride 103 Carbon Dioxide 30 H BUN 12 Creatinine 0.57 L Glucose 109 H Calcium 8.8 Consult Discharge Plan - Plan Additional Instructions: Coordinate followup with outpt mental health for substance abuse once medically stable D/C pt home. Referrals: Afshin Sanabria MD [Partnered Physician] - 08/03/18 8:30 am (1) Pneumonia Qualifiers: Pneumonia type: aspiration pneumonia Aspiration pneumonia type: due to g astric secretions Laterality: right Lung location: upper lobe of lung Qualified Code(s): J69.0 - Pneumonitis due to inhalation of food and vomit (2) Drug overdose Qualifiers: Encounter type: initial encounter Injury intent: accidental or unintentional Qualified Code(s): T50.901A - Poisoning by unspecified drugs, medicaments and biological substances, accidental (unintentional), initial encounter (3) Rhabdomyolysis Qualifiers: Rhabdomyolysis type: non-traumatic Qualified Code(s): M62.82 - Rhabdomyolysis (5) Leucocytosis Qualifiers: Leukocytosis type: unspecified Qualified Code(s): D72.829 - Elevated white blood cell count, unspecified (7) Fever Qualifiers: Fever type: unspecified Qualified Code(s): R50.9 - Fever, unspecified
[2018-07-18] MEDS: Nicotine 21 MG PATCH.TD24 TD SCH (18:39)
[2018-07-19 04:00] LABS: Basophils # 0.1 K/mcL (0.0-0.2); Basophils % 1.2 %; Eosinophils # 0.5 K/mcL (0.0-0.6); Eosinophils % 6.5 %; Hematocrit 42.6 % (37.5-50.1); Hemoglobin 14.4 g/dL (12.9-16.9); Immature Granulocytes % 1.5 % (0-4); Lymphocytes # 2.6 K/mcL (0.6-4.6); Lymphocytes % 34.1 %; Mean Corpuscular HGB Conc 33.8 g/dL (31.6-35.5); Mean Corpuscular Volume 82.7 fL (83.0-100.0); Mean Platelet Volume 9.5 fL (9.4-12.4); Monocytes # 0.6 K/mcL (0.0-1.3); Monocytes % 8.3 %; Neutrophils # 3.7 K/mcL (1.6-8.9); Platelet Count 298 K/mcL (140-400); Red Blood Count 5.15 M/mcL (4.19-5.50); Red Cell Distribution Width 12.7 % (11.5-14.5); Segmented Neutrophils % 48.4 %
[2018-07-19 04:19] LABS: BUN/Creatinine Ratio 20 (6-26); Blood Urea Nitrogen 13 mg/dL (6-20); Calcium 9.1 mg/dL (8.6-10.3); Carbon Dioxide 27 mEq/L (23-29); Chloride 103 mEq/L (98-107); Glucose 103 mg/dL (70-105); Osmolality,Calculated 288 (280-300); Potassium 4.1 mEq/L (3.5-5.1); Sodium 139 mEq/L (136-145); eGFR For Non-African Americans > 60 (> 60)
[2018-07-19] MEDS: *HR* Heparin 5,000 UNIT/ML VIAL SQ SCH (05:37)
[2018-07-19] MEDS: Nicotine 21 MG PATCH.TD24 TD SCH (10:28)
[2018-07-19] MEDS: Multivit/Ca/Min/Fe/FA 1 TAB TABLET PO SCH ×2 (10:29→10:51)
[2018-07-19 12:11] VITALS: BP 127/93
[2018-07-19] MEDS ORDERED: Sulfamethoxazole/Trimeth DS 1 EACH TABLET PO SCH (12:30)
[2018-07-20] MEDS ORDERED: Lactobacillus 1 EACH CAP.SPRINK PO SCH (09:00)
== END 2018-07-19 15:03 | disposition home or self-care (01) | DRG 720 ==
LOC: EMEROOARM 11:23 → ICNU 16:38 → 3ANU 07-16 10:37
PROVIDERS: ADMIT General Practice; ATTEND General Practice

== ENCOUNTER 2019-01-09 16:18 | Inpatient (IN) ==
[2019-01-09 16:49] LABS: Bilirubin,Urine Small (Negative); Blood,Urine Moderate (Negative); Clarity,Urine Cloudy (Clear); Color,Urine Dark Yellow (Yellow); Glucose,Urine (UA) Normal (Normal); Ketones,Urine 15 mg/dL (Negative); Leukocyte Esterase,Urine Negative (Negative); Nitrite,Urine Negative (Negative); PH,Urine 5.5 pH Units (5.0-8.0); Protein,Urine 30 mg/dL (Neg-Trace); Specific Gravity,Urine > 1.030 (1.010-1.025); Urobilinogen,Urine Normal (Normal)
--- NOTE | 2019-01-09 16:51 | Emergency Department Note ---
Disposition Clinical Impression: Methamphetamine abuse, Cocaine abuse Rhabdomyolysis Qualifiers: Rhabdomyolysis type: non-traumatic Qualified Code(s): M62.82 - Rhabdomyolysis Disposition: Admitted As Inpatient Condition: Fair Referrals: NONE,PCP [Primary Care Provider] - Forms: ED Satisfaction Letter Time of Disposition: 19:35 General Adult HPI - General Stated complaint: Si Time Seen by Provider: 01/09/19 16:21 - Related Data Home Medications Medication Instructions Recorded Confirmed No Known Home Drugs 01/09/19 01/09/19 Allergies Allergy/AdvReac Type Severity Reaction Status Date / Time Penicillins [PCN] Allergy Rash Verified 08/01/18 08:14 Past Medical History - Past Medical History Medical history: Reports: no medical history Psychiatric history: Reports: no psych history - Social History Smoking Status: Current every day smoker Smokeless Tobacco Status: No Alcohol use: Reports: occasionally Drug use: Reports: methamphetamine Course Vital Signs Temperature 97.7 F 01/09/19 16:24 Pulse Rate 107 01/09/19 16:24 Respiratory Rate 20 01/09/19 16:24 Blood Pressure 138/83 01/09/19 16:24 O2 Sat by Pulse Oximetry 98 01/09/19 16:24 Temperature 97.7 F 01/09/19 16:24 Pulse Rate 107 01/09/19 16:24 Respiratory Rate 20 01/09/19 16:24 Blood Pressure 138/83 01/09/19 16:24 O2 Sat by Pulse Oximetry 98 01/09/19 16:24 Oxygen Delivery Oxygen Delivery Room Air Medical Decision Making - Lab Data Result diagrams: 01/09/19 16:47 01/09/19 16:47 Lab Results 01/09/19 01/09/19 01/09/19 Range/Units 16:33 16:33 16:47 WBC 10.9 (4.3-11.1) K/mcL RBC 4.87 (4.19-5.50) M/mcL Hgb 14.2 (12.9-16.9) g/dL Hct 40.4 (37.5-50.1) % MCV 83.0 (83.0-100.0) fL MCH 29.2 (28.0-33.3) pg MCHC 35.1 (31.6-35.5) g/dL RDW 11.8 (11.5-14.5) % Plt Count 235 (140-400) K/mcL MPV 9.5 (9.4-12.4) fL Immature Gran % 0.4 (0-4) % Seg Neutrophils % 67.3 % Lymphocytes % 18.5 % Monocytes % 12.5 % Eosinophils % 0.5 % Basophils % 0.8 % Neutrophils # 7.3 (1.6-8.9) K/mcL Lymphocytes # 2.0 (0.6-4.6) K/mcL Monocytes # 1.4 H (0.0-1.3) K/mcL Eosinophils # 0.1 (0.0-0.6) K/mcL Basophils # 0.1 (0.0-0.2) K/mcL Sodium (136-145) mEq/L Potassium (3.5-5.1) mEq/L Chloride (98-107) mEq/L Carbon Dioxide (23-29) mEq/L BUN (6-20) mg/dL Creatinine (0.70-1.30) mg/dL Est GFR ( Amer) (> 60) Est GFR (Non-Af Amer) (> 60) BUN/Creatinine Ratio (6-26) Glucose (70-105) mg/dL Calculated Osmolality (280-300) Calcium (8.6-10.3) mg/dL Total Bilirubin (0.3-1.0) mg/dL Direct Bilirubin (0.0-0.2) mg/dL Indirect Bilirubin (0.0-1.2) mg/dL AST (13-39) Units/L ALT (7-52) Units/L Alkaline Phosphatase (34-104) Units/L Creatine Kinase (30-223) Units/L Serum Total Protein (6.4-8.9) g/dL Albumin (3.5-5.7) g/dL Globulin (2.4-3.5) g/dL Albumin/Globulin Ratio (1.1-2.2) TSH (0.340-5.600) mcIU/mL Urine Color Dark Yellow (Yellow) Urine Clarity Cloudy A (Clear) Urine pH 5.5 (5.0-8.0) pH Units Ur Specific [place] > 1.030 H (1.010-1.025) Urine Protein 30 H (Neg-Trace) mg/dL Urine Glucose (UA) Normal (Normal) mg/dL Urine Ketones 15 H (Negative) mg/dL Urine Blood Moderate H (Negative) Urine Nitrite Negative (Negative) Urine Bilirubin Small H (Negative) Urine Urobilinogen Normal (Normal) mg/dL Ur Leukocyte Esterase Negative (Negative) Urine Microscopic RBC 5-15 H (0-3) per hpf Urine Microscopic WBC 3-5 H (0-3) per hpf Ur Squamous Epith Cells Many H (None-Few) per lpf Urine Bacteria Few (None-Few) per hpf Hyaline Casts Moderate H (None-Few) per lpf Granular Casts Few H (None Seen) per lpf Salicylates (15.0-30.0) mg/dL Urine Opiates Screen Positive H (Gtxiwo=068) ng/mL Acetaminophen (10-20) mcg/mL Ur Barbiturates Screen Negative (Ecblvd=117) ng/mL Ur Phencyclidine Scrn Negative (Cutoff=25) ng/mL Ur Amphetamines Screen Positive H (Mpivzm=4995) ng/mL U Benzodiazepines Scrn Negative (Vrvdic=839) ng/mL Urine Cocaine Screen Positive H (Cutoff= 300) ng/mL U Marijuana (THC) Screen Negative (Cutoff = 50) ng/mL Ur Drug Screen Interp See Below Ethyl Alcohol (Less than 10) mg/dL 01/09/19 Range/Units 16:47 WBC (4.3-11.1) K/mcL RBC (4.19-5.50) M/mcL Hgb (12.9-16.9) g/dL Hct (37.5-50.1) % MCV (83.0-100.0) fL MCH (28.0-33.3) pg MCHC (31.6-35.5) g/dL RDW (11.5-14.5) % Plt Count (140-400) K/mcL MPV (9.4-12.4) fL Immature Gran % (0-4) % Seg Neutrophils % % Lymphocytes % % Monocytes % % Eosinophils % % Basophils % % Neutrophils # (1.6-8.9) K/mcL Lymphocytes # (0.6-4.6) K/mcL Monocytes # (0.0-1.3) K/mcL Eosinophils # (0.0-0.6) K/mcL Basophils # (0.0-0.2) K/mcL Sodium 135 L (136-145) mEq/L Potassium 3.4 L (3.5-5.1) mEq/L Chloride 98 (98-107) mEq/L Carbon Dioxide 24 (23-29) mEq/L BUN 25 H (6-20) mg/dL Creatinine 1.01 (0.70-1.30) mg/dL Est GFR ( Amer) > 60 (> 60) Est GFR (Non-Af Amer) > 60 (> 60) BUN/Creatinine Ratio 25 (6-26) Glucose 92 (70-105) mg/dL Calculated Osmolality 284 (280-300) Calcium 9.4 (8.6-10.3) mg/dL Total Bilirubin 1.5 H (0.3-1.0) mg/dL Direct Bilirubin 0.5 H (0.0-0.2) mg/dL Indirect Bilirubin 1.0 (0.0-1.2) mg/dL AST 126 H (13-39) Units/L ALT 222 H (7-52) Units/L Alkaline Phosphatase 51 (34-104) Units/L Creatine Kinase 1664 H (30-223) Units/L Serum Total Protein 7.6 (6.4-8.9) g/dL Albumin 4.6 (3.5-5.7) g/dL Globulin 3.0 (2.4-3.5) g/dL Albumin/Globulin Ratio 1.5 (1.1-2.2) TSH 0.503 (0.340-5.600) mcIU/mL Urine Color (Yellow) Urine Clarity (Clear) Urine pH (5.0-8.0) pH Units Ur Specific [place] (1.010-1.025) Urine Protein (Neg-Trace) mg/dL Urine Glucose (UA) (Normal) mg/dL Urine Ketones (Negative) mg/dL Urine Blood (Negative) Urine Nitrite (Negative) Urine Bilirubin (Negative) Urine Urobilinogen (Normal) mg/dL Ur Leukocyte Esterase (Negative) Urine Microscopic RBC (0-3) per hpf Urine Microscopic WBC (0-3) per hpf Ur Squamous Epith Cells (None-Few) per lpf Urine Bacteria (None-Few) per hpf Hyaline Casts (None-Few) per lpf Granular Casts (None Seen) per lpf Salicylates < 2.5 L (15.0-30.0) mg/dL Urine Opiates Screen (Gjveny=030) ng/mL Acetaminophen < 10 L (10-20) mcg/mL Ur Barbiturates Screen (Bahksf=940) ng/mL Ur Phencyclidine Scrn (Cutoff=25) ng/mL Ur Amphetamines Screen (Azcqhr=7182) ng/mL U Benzodiazepines Scrn (Lokwbf=482) ng/mL Urine Cocaine Screen (Cutoff= 300) ng/mL U Marijuana (THC) Screen (Cutoff = 50) ng/mL Ur Drug Screen Interp Ethyl Alcohol < 10 (Less than 10) mg/dL Attestation Statement - Attestation Attestation: I, Jorge Skaggs DO, examined this patient [id number] and my medical decision-making was reviewed with Dr. Zoya Anderson Resident Physician. I agree with the documented findings, disposition and treatment plan as described except to the extent set forth below. I personally supervised and was present for the roe/critical portions of the procedures completed by the resident documented below. Please see my progress notes for details. 23-year-old male presents emergency room by EMS for suicidal ideation. Patient injected methamphetamine and cocaine into his veins. He also used heroin yesterday. Patient said that he was the end his life. Patient has appropriate cognitive insight to his presenting issues today. He answers questions appropriately despite the fact that he has uncontrolled tremors. Patient is sinan rt he is oriented and answers questions inappropriately contact head is atraumatic pupils are equal and reactive oropharynx patent. Trachea is midline. Lungs are clear heart is regular. Extremities are normal. Patient has no signs of trauma or injury. Patient will medical clearance completed this time. He does not require any further imaging or workup. Disposition to be completed once the full evaluation has been established. See detailed documentation the physical exam, medical intervention, medical decision-making and disposition in the resident physician's note. No critical care applied the patient's treatment course at this time. 1800 Patient has an elevated CPK at 1600. Concern is noted for early rhabdomyolysis. Patient be provided with fluids nausea medication admitted to the hospital for monitoring. The hospitalist has been contacted and the patient will be admitted for monitoring until the psychiatric evaluation can be completed 191 Patient was discussed with the hospitalist Dr. carter. Detailed review the presentation symptoms or concern for rhabdomyolysis were discussed. Patient is been started on appropriate fluid resuscitation. Will be monitored until this medical issue is cleared and the and evaluated by the psychiatric team. Patient is otherwise clinically stable at this point. Patient will be monitored here in the emergency department until admission process is completed.
[2019-01-09 16:53] LABS: Squamous Epithelial Cell,Urine Many per lpf (None-Few)
[2019-01-09 17:05] LABS: Amphetamine Screen,Urine Positive ng/mL (Cutoff=1000); Barbiturate Screen,Urine Negative ng/mL (Cutoff=200); Benzodiazepines Screen,Urine Negative ng/mL (Cutoff=200); Cannabinoid Screen,Urine Negative ng/mL (Cutoff = 50); Cocaine Screen,Urine Positive ng/mL (Cutoff= 300); Opiate Screen,Urine Positive ng/mL (Cutoff=300); Phencyclidine Screen,Urine Negative ng/mL (Cutoff=25)
--- NOTE | 2019-01-09 17:14 | Emergency Department Note ---
Disposition Clinical Impression: Methamphetamine abuse, Cocaine abuse Rhabdomyolysis Qualifiers: Rhabdomyolysis type: non-traumatic Qualified Code(s): M62.82 - Rhabdomyolysis Disposition: Admitted As Inpatient Condition: Fair Time of Disposition: 18:09 General Adult HPI - General Chief complaint: ED Overdose Stated complaint: Si Time Seen by Provider: 01/09/19 16:21 Source: patient, EMS Limitations: no limitations Nursing Notes Reviewed: Yes Vital Signs Reviewed: Yes - History of Present Illness HPI Narrative: Patient is a 23-year-old male who is presenting to the ER via EMS for suicidal ideation. Patient with known history of IV drug use including heroin, methamphetamine and cocaine. Just prior to arrival, the patient stated that he attempted to kill himself by injecting large quantities of a concoction of methamphetamine and cocaine. Patient states that this was attempted to kill himself. He does have suicidal attempt in the past. Last known heroin use was yesterday. Patient with history of daily methamphetamine and cocaine use otherwise. Patient currently states that he feels somewhat nausea, no abdominal pain, fever or chills. No urinary complaints. No chest pain or shortness of breath. Patient without auditory or visual hallucinations. Patient has no homicidal ideation. Pain Scale: 5 - Related Data Home Medications Medication Instructions Recorded Confirmed No Known Home Drugs 01/09/19 01/09/19 Allergies Allergy/AdvReac Type Severity Reaction Status Date / Time Penicillins [PCN] Allergy Rash Verified 08/01/18 08:14 All systems ED: reviewed and negative except as stated. Review of Systems: As Per HPI Constitutional: Denies: fever, chills ENT ED: Denies: congestion Cardiovascular: Denies: chest pain, palpitations, edema Respiratory: Denies: cough, dyspnea, wheezes Gastrointestinal: Reports: nausea. Denies: abdominal pain, vomiting Genitourinary: Denies: urgency, dysuria, frequency Musculoskeletal: Denies: back pain Integumentary: Denies: rash Neurological: Denies: headache, weakness, numbness, confusion Psychiatric: Reports: anxiety, suicidal thoughts. Denies: homicidal thoughts, auditory hallucinations, visual hallucinations Endocrine: Denies: fatigue Past Medical History - Past Medical History Medical history: Reports: no medical history, hepatitis, hypertension Psychiatric history: Reports: no psych history - Social History Smoking Status: Current every day smoker Smokeless Tobacco Status: No Alcohol use: Reports: occasionally Drug use: Reports: methamphetamine Physical Exam - General Limitations: no limitations, altered mental status General appearance: alert, appears intoxicated - Head Head exam: atraumatic, normocephalic, normal inspection - Eye Eye exam: Present: normal appearance - ENT ENT exam: mucous membranes dry - Neck Neck exam: Present: normal inspection, full ROM, trachea midline - Chest Chest inspection: Present: normal inspection, symmetric chest wall rise - Respiratory Respiratory exam: Present: normal lung sounds bilaterally - Cardiovascular Cardiovascular exam: Present: normal rhythm, tachycardia - Abdominal Exam Abdominal exam: Present: soft, Non-Tender. Absent: tenderness, distention, guarding, rebound, rigidity - Extremities Exam Extremities exam: Present: normal inspection, full ROM. Absent: tenderness, pedal edema - Expanded Lower Extremity Exam Neurovascular/Tendon exam: Absent: motor deficit, sensory deficit, tendon d eficit - Back Exam Back exam: Present: normal inspection - Neurological Exam Neurological exam: Present: alert, oriented X3 - Psychiatric Psychiatric exam: Present: normal affect, normal mood - Skin Skin exam: Present: erythema (Patient is erythematous throughout the face, chest and appears to be somewhat dry is not diaphoretic ) Course Vital Signs Temperature 97.7 F 01/09/19 16:24 Pulse Rate 107 01/09/19 16:24 Respiratory Rate 20 01/09/19 16:24 Blood Pressure 138/83 01/09/19 16:24 O2 Sat by Pulse Oximetry 98 01/09/19 16:24 Temperature 97.7 F 01/09/19 16:24 Pulse Rate 107 01/09/19 16:24 Respiratory Rate 20 01/09/19 16:24 Blood Pressure 138/83 01/09/19 16:24 O2 Sat by Pulse Oximetry 98 01/09/19 16:24 Oxygen Delivery Oxygen Delivery Room Air Medical Decision Making - [facility] Narrative Medical decision making narrative: Patient is a 23-year-old male who is brought in for suicidal ideation. Patient with attempted suicide injecting IV drugs into his forearms, specific methamphetamine and cocaine. Patient was brought in via EMS, initial evaluation of the patient is alert and oriented 3, he is altered and intoxicated, shaking throughout, he does have involuntary arm movements, and appears flushed throughout the face and chest, warm to touch but afebrile. He is tachycardic on examination. Suspect this is all secondary to methamphetamine and cocaine use. There is concern for potential rhabdomyolysis, and this case EKG has been performed. Basic blood work including CBC, BMP as well as troponin and urinalysis, alcohol level, salicylate and Tylenol have been performed. Patient will be medically evaluated and cleared prior to one a evaluation. Laboratory work was evaluated, which showed elevated CK, in setting of patient's with amphetamine use and cocaine, suspect this is most likely secondary to this with subsequent rhabdomyolysis, patient was given a total of 2 L of saline and he will be started on 350 ML's per hour maintenance until admission. Patient this point in time will be admitted. - Medical Records Medical records reviewed: Yes I reviewed the patient's medical records. - Lab Data Lab results reviewed: Yes I reviewed the patient's lab results. Result diagrams: 01/09/19 16:47 01/09/19 16:47 Lab Results 01/09/19 01/09/19 01/09/19 Range/Units 16:33 16:33 16:47 WBC 10.9 (4.3-11.1) K/mcL RBC 4.87 (4.19-5.50) M/mcL Hgb 14.2 (12.9-16.9) g/dL Hct 40.4 (37.5-50.1) % MCV 83.0 (83.0-100.0) fL MCH 29.2 (28.0-33.3) pg MCHC 35.1 (31.6-35.5) g/dL RDW 11.8 (11.5-14.5) % Plt Count 235 (140-400) K/mcL MPV 9.5 (9.4-12.4) fL Immature Gran % 0.4 (0-4) % Seg Neutrophils % 67.3 % Lymphocytes % 18.5 % Monocytes % 12.5 % Eosinophils % 0.5 % Basophils % 0.8 % Neutrophils # 7.3 (1.6-8.9) K/mcL Lymphocytes # 2.0 (0.6-4.6) K/mcL Monocytes # 1.4 H (0.0-1.3) K/mcL Eosinophils # 0.1 (0.0-0.6) K/mcL Basophils # 0.1 (0.0-0.2) K/mcL Sodium (136-145) mEq/L Potassium (3.5-5.1) mEq/L Chloride (98-107) mEq/L Carbon Dioxide (23-29) mEq/L BUN (6-20) mg/dL Creatinine (0.70-1.30) mg/dL Est GFR ( Amer) (> 60) Est GFR (Non-Af Amer) (> 60) BUN/Creatinine Ratio (6-26) Glucose (70-105) mg/dL Calculated Osmolality (280-300) Calcium (8.6-10.3) mg/dL Total Bilirubin (0.3-1.0) mg/dL Direct Bilirubin (0.0-0.2) mg/dL Indirect Bilirubin (0.0-1.2) mg/dL AST (13-39) Units/L ALT (7-52) Units/L Alkaline Phosphatase (34-104) Units/L Creatine Kinase (30-223) Units/L Serum Total Protein (6.4-8.9) g/dL Albumin (3.5-5.7) g/dL Globulin (2.4-3.5) g/dL Albumin/Globulin Ratio (1.1-2.2) TSH (0.340-5.600) mcIU/mL Urine Color Dark Yellow (Yellow) Urine Clarity Cloudy A (Clear) Urine pH 5.5 (5.0-8.0) pH Units Ur Specific [place] > 1.030 H (1.010-1.025) Urine Protein 30 H (Neg-Trace) mg/dL Urine Glucose (UA) Normal (Normal) mg/dL Urine Ketones 15 H (Negative) mg/dL Urine Blood Moderate H (Negative) Urine Nitrite Negative (Negative) Urine Bilirubin Small H (Negative) Urine Urobilinogen Normal (Normal) mg/dL Ur Leukocyte Esterase Negative (Negative) Urine Microscopic RBC 5-15 H (0-3) per hpf Urine Microscopic WBC 3-5 H (0-3) per hpf Ur Squamous Epith Cells Many H (None-Few) per lpf Urine Bacteria Few (None-Few) per hpf Hyaline Casts Moderate H (None-Few) per lpf Granular Casts Few H (None Seen) per lpf Salicylates (15.0-30.0) mg/dL Urine Opiates Screen Positive H (Lwifph=912) ng/mL Acetaminophen (10-20) mcg/mL Ur Barbiturates Screen Negative (Ezfpzd=567) ng/mL Ur Phencyclidine Scrn Negative (Cutoff=25) ng/mL Ur Amphetamines Screen Positive H (Mjouhv=8648) ng/mL U Benzodiazepines Scrn Negative (Vpezrc=150) ng/mL Urine Cocaine Screen Positive H (Cutoff= 300) ng/mL U Marijuana (THC) Screen Negative (Cutoff = 50) ng/mL Ur Drug Screen Interp See Below Ethyl Alcohol (Less than 10) mg/dL 01/09/19 Range/Units 16:47 WBC (4.3-11.1) K/mcL RBC (4.19-5.50) M/mcL Hgb (12.9-16.9) g/dL Hct (37.5-50.1) % MCV (83.0-100.0) fL MCH (28.0-33.3) pg MCHC (31.6-35.5) g/dL RDW (11.5-14.5) % Plt Count (140-400) K/mcL MPV (9.4-12.4) fL Immature Gran % (0-4) % Seg Neutrophils % % Lymphocytes % % Monocytes % % Eosinophils % % Basophils % % Neutrophils # (1.6-8.9) K/mcL Lymphocytes # (0.6-4.6) K/mcL Monocytes # (0.0-1.3) K/mcL Eosinophils # (0.0-0.6) K/mcL Basophils # (0.0-0.2) K/mcL Sodium 135 L (136-145) mEq/L Potassium 3.4 L (3.5-5.1) mEq/L Chloride 98 (98-107) mEq/L Carbon Dioxide 24 (23-29) mEq/L BUN 25 H (6-20) mg/dL Creatinine 1.01 (0.70-1.30) mg/dL Est GFR ( Amer) > 60 (> 60) Est GFR (Non-Af Amer) > 60 (> 60) BUN/Creatinine Ratio 25 (6-26) Glucose 92 (70-105) mg/dL Calculated Osmolality 284 (280-300) Calcium 9.4 (8.6-10.3) mg/dL Total Bilirubin 1.5 H (0.3-1.0) mg/dL Direct Bilirubin 0.5 H (0.0-0.2) mg/dL Indirect Bilirubin 1.0 (0.0-1.2) mg/dL AST 126 H (13-39) Units/L ALT 222 H (7-52) Units/L Alkaline Phosphatase 51 (34-104) Units/L Creatine Kinase 1664 H (30-223) Units/L Serum Total Protein 7.6 (6.4-8.9) g/dL Albumin 4.6 (3.5-5.7) g/dL Globulin 3.0 (2.4-3.5) g/dL Albumin/Globulin Ratio 1.5 (1.1-2.2) TSH 0.503 (0.340-5.600) mcIU/mL Urine Color (Yellow) Urine Clarity (Clear) Urine pH (5.0-8.0) pH Units Ur Specific [place] (1.010-1.025) Urine Protein (Neg-Trace) mg/dL Urine Glucose (UA) (Normal) mg/dL Urine Ketones (Negative) mg/dL Urine Blood (Negative) Urine Nitrite (Negative) Urine Bilirubin (Negative) Urine Urobilinogen (Normal) mg/dL Ur Leukocyte Esterase (Negative) Urine Microscopic RBC (0-3) per hpf Urine Microscopic WBC (0-3) per hpf Ur Squamous Epith Cells (None-Few) per lpf Urine Bacteria (None-Few) per hpf Hyaline Casts (None-Few) per lpf Granular Casts (None Seen) per lpf Salicylates < 2.5 L (15.0-30.0) mg/dL Urine Opiates Screen (Xcdpmc=410) ng/mL Acetaminophen < 10 L (10-20) mcg/mL Ur Barbiturates Screen (Tpsxch=627) ng/mL Ur Phencyclidine Scrn (Cutoff=25) ng/mL Ur Amphetamines Screen (Hxxmsh=6813) ng/mL U Benzodiazepines Scrn (Pvfzsn=210) ng/mL Urine Cocaine Screen (Cutoff= 300) ng/mL U Marijuana (THC) Screen (Cutoff = 50) ng/mL Ur Drug Screen Interp Ethyl Alcohol < 10 (Less than 10) mg/dL Attestation Statement - Attestation Attestation: I, Jorge Skaggs DO, examined this patient [id number] and my medical decision-making was reviewed with Dr. Zoya Anderson , Resident Physician. I agree with the documented findings, disposition and treatment plan as described except to the extent set forth below. I personally supervised and was present for the roe/critical portions of the procedures completed by the resident documented below. Please see my progress notes for details.
[2019-01-09 17:18] LABS: Basophils # 0.1 K/mcL (0.0-0.2); Basophils % 0.8 %; Eosinophils # 0.1 K/mcL (0.0-0.6); Eosinophils % 0.5 %; Hematocrit 40.4 % (37.5-50.1); Hemoglobin 14.2 g/dL (12.9-16.9); Immature Granulocytes % 0.4 % (0-4); Lymphocytes % 18.5 %; Mean Corpuscular HGB Conc 35.1 g/dL (31.6-35.5); Mean Corpuscular Hemoglobin 29.2 pg (28.0-33.3); Mean Platelet Volume 9.5 fL (9.4-12.4); Monocytes # 1.4 K/mcL (0.0-1.3); Monocytes % 12.5 %; Neutrophils # 7.3 K/mcL (1.6-8.9); Platelet Count 235 K/mcL (140-400); Red Blood Count 4.87 M/mcL (4.19-5.50); Red Cell Distribution Width 11.8 % (11.5-14.5); Segmented Neutrophils % 67.3 %; White Blood Count 10.9 K/mcL (4.3-11.1)
[2019-01-09 17:38] LABS: Bacteria,Urine Few per hpf (None-Few); Granular Casts,Urine Few per lpf (None Seen); Hyaline Casts,Urine Moderate per lpf (None-Few)
[2019-01-09 17:42] LABS: Acetaminophen < 10 mcg/mL (10-20); Alanine Aminotransferase 222 Units/L (7-52); Albumin 4.6 g/dL (3.5-5.7); Albumin/Globulin Ratio 1.5 (1.1-2.2); Alkaline Phosphatase 51 Units/L (34-104); Aspartate Amino Transferase 126 Units/L (13-39); BUN/Creatinine Ratio 25 (6-26); Bilirubin,Direct 0.5 mg/dL (0.0-0.2); Bilirubin,Total 1.5 mg/dL (0.3-1.0); Blood Urea Nitrogen 25 mg/dL (6-20); Calcium 9.4 mg/dL (8.6-10.3); Carbon Dioxide 24 mEq/L (23-29); Chloride 98 mEq/L (98-107); Creatine Kinase 1664 Units/L (30-223); Ethanol < 10 mg/dL (Less than 10); Glucose 92 mg/dL (70-105); Osmolality,Calculated 284 (280-300); Potassium 3.4 mEq/L (3.5-5.1); Salicylate < 2.5 mg/dL (15.0-30.0); Sodium 135 mEq/L (136-145); Total Protein 7.6 g/dL (6.4-8.9); eGFR For African Americans > 60 (> 60); eGFR For Non-African Americans > 60 (> 60)
[2019-01-09 18:03] LABS: Thyroid Stimulating Hormone 0.503 mcIU/mL (0.340-5.600)
[2019-01-09] MEDS ORDERED: 0.9 % Sodium Chloride 1,000 ML IVC SCH (18:15)
[2019-01-09] MEDS: 0.9 % Sodium Chloride 1,000 ML IVC SCH ×3 (19:16→22:22)
[2019-01-09] MEDS ORDERED: diazePAM 10 MG/2 ML SYRINGE IVP ONE (20:29)
--- NOTE | 2019-01-09 20:53 | Internal Med History&Physical ---
Date of Encounter: 01/09/19 Time of Encounter: 20:52 Internal Medicine - H&P: HPI Chief complaint: SI Admitted From: Home Plans for Post Hospital Care: Home History of present illness: Denilson Yoo is a 23-year-old man with substance use disorder, chronic HCV and HTN who frequently is admitted for acute intoxication followed by delirium and suicidal ideation. He is brought in by EMS he can reportedly for suicidal ideation and as per chart review he attempted to kill himself by injecting large quantities of a concoction of methamphetamine and cocaine. On my assessment he is not cooperative and is rather tangential with pressured speech. Patient declined a full physical examination as he did not want to be touched. Vitals: Reviewed General: Well-developed young male with an agitated state Skin: Not pale, flushed. HEENT: No scleral icterus. Neck: Deferred. Chest: Deferred Heart: Deferred Abdomen: Non-distended. Extremities: Moves all extremities actively. Neurological: Hypervigilant. No focal deficits apparent. Psych: Deferred Assessment/Plan 1. Acute drug intoxication: The patient presents with a sympathomimetic hyperadrenergic syndrome that has led to rhabdomyolysis. Will sedated with benzos. 2. Delirium: Secondary to drug intoxication. May administer 2nd generation antipsychotics if not calmed with benzos. 3. Rhabdomyolysis: Fluid resuscitation started. Need to watch for NAGMA that could be worsened by saline fluids at which point a change in fluid type may be required. 4. Suicidal ideation: [address] 5. Substance use disorder: Will benefit from rn social services once stabilized. 6. DVT prophyalxis: Antiembolic stockings ordered. Past Med Surg Social Fam HX - Past Medical History Medical history: no medical history, hepatitis, hypertension Additional medical history: Herpes Psychiatric history: no psych history - Social History Smoking Status: Current every day smoker Smokeless Tobacco Status: No Alcohol use: occasionally Drug use: methamphetamine Internal Medicine - H&P: Meds No Known Home Drugs 01/09/19 [History] Allergy/AdvReac Type Severity Reaction Status Date / Time Penicillins [PCN] Allergy Rash Verified 08/01/18 08:14 All Systems PM: A 10-system review of systems was performed and is negative for pertinent findings except as documented above in the HPI. Family history reviewed and found non-contributory. - Constitutional Vitals: Temp Pulse Resp BP Pulse Ox 99.9 F H 113 18 146/62 96 01/09/19 20:28 01/09/19 20:28 01/09/19 20:28 01/09/19 20:28 01/09/19 20:28 Exam: . Internal Med - H&P Results - Labs CBC & Chem 7: 01/09/19 16:47 01/09/19 16:47 Labs: Short CBC 01/09/19 Range/Units 16:47 WBC 10.9 (4.3-11.1) K/mcL Hgb 14.2 (12.9-16.9) g/dL Hct 40.4 (37.5-50.1) % Plt Count 235 (140-400) K/mcL Neutrophils # 7.3 (1.6-8.9) K/mcL BMP 01/09/19 16:47 Sodium 135 L Potassium 3.4 L Chloride 98 Carbon Dioxide 24 BUN 25 H Creatinine 1.01 Glucose 92 Calcium 9.4 Liver Function 01/09/19 Range/Units 16:47 Total Bilirubin 1.5 H (0.3-1.0) mg/dL Direct Bilirubin 0.5 H (0.0-0.2) mg/dL AST 126 H (13-39) Units/L ALT 222 H (7-52) Units/L Alkaline Phosphatase 51 (34-104) Units/L Albumin 4.6 (3.5-5.7) g/dL Urine 01/09/19 Range/Units 16:33 Urine Color Dark Yellow (Yellow) Urine Clarity Cloudy A (Clear) Urine pH 5.5 (5.0-8.0) pH Units Ur Specific [place] > 1.030 H (1.010-1.025) Urine Protein 30 H (Neg-Trace) mg/dL Urine Glucose (UA) Normal (Normal) mg/dL - Time Spent With Patient Total time spent is greater than 50% in coordination of care (as documented) at patient's floor/unit and/or counseling patient: Greater than 35 minutes
[2019-01-09] MEDS ORDERED: *HR* Promethazine 25 MG/ML VIAL IVP ONE (21:22)
[2019-01-09] MEDS ORDERED: Haloperidol Lactate 5 MG/ML VIAL IVP ONE (21:22)
--- NOTE | 2019-01-09 22:08 | Event Note ---
Date of Encounter: 01/09/19 Time of Encounter: 21:45 Alerted by pts. nurse Rocky that the pt. was now on the unit and was becoming agitated and had unhooked his IV fluids. IV access still intact. Pt. is admitted for acute intoxication followed by delirium and suicidal ideation. According to ED notes, the pt. attempted to kill himself by injecting large quantities of a mix of methamphetamine and cocaine. Nurse instructed to call security for placement of 4-point soft restraints. Security called. Pt. was restrained and was not overly aggressive while being restrained but continued tangential speech and claims about himself. 4-point soft restraints placed on bilateral UEs and LEs. 2 mg IVP Haldol and 12.5 mg IVP Phenergan administered for current agitation. Will add an additional 12.5 mg IVP Phenergan if needed. Following placement of restraints, I attempted to assess the pts. HR and lungs but he refused to be touched. Pt. is showing signs of paranoia, likely d/t drug withdrawal. 0.9 IV fluid currently running at 250 mls/hr. Nurse instructed to continue monitoring the pt. very closely and alert me immediately of any adverse changes. Called 1[facility] to verify that the 1A evaluation placed in the ED had been confirmed and discussed with the on-call Psychiatrist which it had not. Patient currently pink-slipped in ED at 16:30 on 01/09/19. Cheri from 1A called me back and stated that Dr. Riojas would see the pt. in the a.m. and to place the 1A consult now so they would have a printout. 1A consult ordered. Checked on pt. at 22:15 and pt. was now sleeping. Nurse instructed to place continuous pulse ox on the pt. Will continue to monitor closely overnight.
[2019-01-09] MEDS ORDERED: *HR* LORazepam 2 MG/ML VIAL IVP PRN (22:13)
[2019-01-10] MEDS: 0.9 % Sodium Chloride 1,000 ML IVC SCH ×3 (02:18→17:48)
[2019-01-10 09:54] LABS: Hematocrit 36.5 % (37.5-50.1); Mean Corpuscular HGB Conc 34.5 g/dL (31.6-35.5); Mean Corpuscular Hemoglobin 28.9 pg (28.0-33.3); Mean Corpuscular Volume 83.7 fL (83.0-100.0); Mean Platelet Volume 9.5 fL (9.4-12.4); Platelet Count 178 K/mcL (140-400); Red Blood Count 4.36 M/mcL (4.19-5.50); White Blood Count 6.3 K/mcL (4.3-11.1)
[2019-01-10 09:55] LABS: Hemoglobin 12.6 g/dL (12.9-16.9)
[2019-01-10 10:14] LABS: Alanine Aminotransferase 167 Units/L (7-52); Albumin 3.3 g/dL (3.5-5.7); Albumin/Globulin Ratio 1.4 (1.1-2.2); Alkaline Phosphatase 36 Units/L (34-104); Aspartate Amino Transferase 99 Units/L (13-39); BUN/Creatinine Ratio 22 (6-26); Blood Urea Nitrogen 12 mg/dL (6-20); Calcium 7.9 mg/dL (8.6-10.3); Carbon Dioxide 26 mEq/L (23-29); Chloride 110 mEq/L (98-107); Globulin 2.3 g/dL (2.4-3.5); Glucose 111 mg/dL (70-105); Osmolality,Calculated 290 (280-300); Phosphorous 2.1 mg/dL (2.7-4.5); Potassium 3.8 mEq/L (3.5-5.1); Sodium 140 mEq/L (136-145); Total Protein 5.6 g/dL (6.4-8.9); eGFR For African Americans > 60 (> 60); eGFR For Non-African Americans > 60 (> 60)
--- NOTE | 2019-01-10 10:14 | Internal Med Progress Note ---
Hospitalist Progress Note - Encounter Date of Encounter: 01/10/19 Time of Encounter: 10:08 - Subjective Interval History: the patient was seen and examined at bedside. awake alert this morning no agitated taking his breakfast admit that he took large dose of cocaine and amphetamine to kill himself, he said it is too much things going on him d/c iv fluid one by one sitter, on suicidal precaution psychiatrist to see patient today pink slipped denied dysuria, hand pain, chest pain or abdominal pain - Exam Vitals: Temp Pulse Resp BP Pulse Ox 97.1 F L 88 16 116/56 96 01/10/19 08:08 01/10/19 08:08 01/10/19 08:08 01/10/19 08:08 01/10/19 08:08 Exam: Physical examination: Gen.: Patient is alert and oriented, not in respiratory distress of pain HEENT: perrla , EOMI, no thyroid gland enlargement, no neck mass, supple neck Heart: S1 and S2 andres, normal sinus rhythm, no cardiac murmur no gallop rhythm Chest: Air entry equal bilaterally, clear chest, no wheezing, crackles or crepitation Abdomen: Soft nontender nondistended positive bowel sounds, no organomegaly Extremities: No pitting edema, peripheral pulses palpable, no cyanosis tenderness Neuro: Able to move all 4 limbs, no focal neurological deficit. - Assessment and Plan (1) Acute drug intoxication Current Visit: Yes Status: Acute Assessment and Plan: Currently the patient is more awake and alert Taking his breakfast this morning Patient was received IV phenegran and haloperidol last night There is no fever the patient denied burning sensation urine Hemodynamically stable (2) Rhabdomyolysis Current Visit: Yes Status: Acute Assessment and Plan: Secondary to cocaine and methamphetamine abuse On IV fluids Today creatinine kinase trending down to 572 Correct serum electrolytes, hyperphosphatemia (3) Substance abuse Current Visit: No Status: Acute Assessment and Plan: Cocaine and methamphetamine abuse Patient denies chest pain On telemetry check Ekg (4) Suicidal ideation Current Visit: No Status: Acute (5) Transaminitis Current Visit: Yes Status: Acute Assessment and Plan: Patient has history of chronic hepatitis C On presentation AST was 126 and ALT 222 Today trending down on IV fluids and other supportive therapy With AST today 99 and ALT 167 avoid tylenol patient denied abdominal pain monitor liver function DVT Prophylaxis: ambulatory - Time Spent with Patient Total time spent is greater than 50% in coordination of care (as documented) at patient's floor/unit and/or counseling patient: Internal Medicine: Result - Labs CBC & Chem 7: 01/10/19 09:38 01/10/19 09:38 Labs: Short CBC 01/09/19 01/10/19 Range/Units 16:47 09:38 WBC 10.9 6.3 (4.3-11.1) K/mcL Hgb 14.2 12.6 L D (12.9-16.9) g/dL Hct 40.4 36.5 L (37.5-50.1) % Plt Count 235 178 (140-400) K/mcL Neutrophils # 7.3 (1.6-8.9) K/mcL BMP 01/09/19 16:47 Sodium 135 L Potassium 3.4 L Chloride 98 Carbon Dioxide 24 BUN 25 H Creatinine 1.01 Glucose 92 Calcium 9.4 Liver Function 01/09/19 Range/Units 16:47 Total Bilirubin 1.5 H (0.3-1.0) mg/dL Direct Bilirubin 0.5 H (0.0-0.2) mg/dL AST 126 H (13-39) Units/L ALT 222 H (7-52) Units/L Alkaline Phosphatase 51 (34-104) Units/L Albumin 4.6 (3.5-5.7) g/dL Urine 01/09/19 Range/Units 16:33 Urine Color Dark Yellow (Yellow) Urine Clarity Cloudy A (Clear) Urine pH 5.5 (5.0-8.0) pH Units Ur Specific [place] > 1.030 H (1.010-1.025) Urine Protein 30 H (Neg-Trace) mg/dL Urine Glucose (UA) Normal (Normal) mg/dL Consult Discharge Plan - Plan Referrals: NONE,PCP [Primary Care Provider] - (1) Acute drug intoxication Qualifiers: Complication of substance-induced condition: with unspecified complication Qualified Code(s): F19.929 - Other psychoactive substance use, unspecified with intoxication, unspecified (2) Rhabdomyolysis Qualifiers: Rhabdomyolysis type: non-traumatic Qualified Code(s): M62.82 - Rhabdomyolysis
--- NOTE | 2019-01-10 13:39 | Consult Note ---
Date of Encounter: 01/10/19 Time of Encounter: 13:34 Assessment & Recommendation (1) Substance induced mood disorder Current visit: No Status: Acute Assessment & Recommendation: Client endorses SI in the context of acute intoxication/withdrawal. He is sedated on eval today and difficult to interview. Suspect presentation will improve once drugs wear off. Given that he has repeatedly presented to the hospital with the same clinical presentation, would strongly recommend that he be referred to a dual diagnosis program. Client states he has [employer] and he should qualify for such a placement. He would benefit most from being somewhere that places a heavy emphasis on substance abuse treatment in addition to treating any depressive symptoms. Staff have had recent luck placing people with similar situations at [facility], and [facility] in [place]. [facility] currently has open beds and can be reached at [phone]. Recommend a web content & social media manager consult to start the process of getting him referred. In the meantime can use Haldol 5-10mg as needed to help control agitation. Given that he is fairly muscular may want to give 2mg of Cogentin or 50mg of Benadryl with Haldol to avoid any dystonic/EPS reactions. Call if any questions. History of Present Illness Requesting Physician: Vilma Taylor MD Reason for consult: suicidal ideation History of present illness: Mr. Yoo is a 23 year old male who was admitted for reportedly injecting himself with multiple drugs as a suicide attempt. Tox screen positive for Opiates, Cocaine, and Methamphetamines. Last night client was extremely agitated. Required sedating meds and soft restraints. Today client is calm but difficult to interview. He repeatedly fell asleep during the interview and it was hard to get much history from him. Per records he has presented to the ER multiple times with SI and substance induced mood/psychotic symptoms. Denies SI as soon as withdrawals pass and he wants to leave. Client reports one prior mental health admission in [place], [place] but most of his treatment has been in the form of AOD treatment. Client is not currently linked with a psychiatrist or on any medications. CC: Vilma Taylor MD Past Med Surg Social Fam HX - Past Medical History Medical history: hepatitis, hypertension - Past Psychiatric History Psychiatric history: Reports: prior suicide attempt, previous psychiatric hospitalization Family psychiatric history: Unknown Family History of Suicide: Unknown - Past Surgical History Surgical History: appendectomy - Social History Smoking Status: Current every day smoker Smokeless Tobacco Status: No Alcohol use: occasionally Drug use: cocaine, opiates, marijuana, methamphetamine, IV Drug Use Medications & Allergies No Known Home Drugs 01/09/19 [History] Allergy/AdvReac Type Severity Reaction Status Date / Time Penicillins [PCN] Allergy Rash Verified 08/01/18 08:14 Review of Systems Constitutional: Denies: fever, chills, weakness, weight change Eyes: Denies: eye pain, vision change Ears, Nose, Throat: Denies: ear pain, throat pain, dental pain, hearing loss, congestion Cardiovascular: Denies: chest pain, palpitations, dyspnea on exertion Respiratory: Denies: cough, dyspnea, wheezes Gastrointestinal: Denies: abdominal pain, nausea, vomiting, diarrhea, constipation Genitourinary male: Denies: urgency, dysuria, frequency, genital lesions Musculoskeletal: Denies: joint swelling, joint pain Integumentary: Denies: rash, lesions, pruritus Neurological: Denies: headache, weakness, numbness, memory loss Endocrine: Denies: fatigue, heat or cold intolerance Hematologic/Lymphatic: Denies: easy bruising, lymphadenopathy Allergic/Immunologic: Denies: urticaria, itchy eyes Psychiatry Exam - Constitutional Vitals: Temp Pulse Resp BP Pulse Ox 98.0 F 84 16 109/50 97 01/10/19 11:50 01/10/19 11:50 01/10/19 11:50 01/10/19 11:50 01/10/19 11:50 General appearance: age & developmentally appropriate - Musculoskeletal Station: relaxed Strength & Tone: normal for patient - Psychiatric Patient Orientation: Yes Person, Yes Place Level of alertness: Sedated Behavior: calm Psychomotor activity: Normal Eye Contact: Minimal Contact Mood Description: Depressed Affect description: congruent with mood Speech Volume: Soft/Quiet Speech pattern: slurred Language & Vocabulary: consistent with education Thought Process: Majestic Thought Content: Yes Suicidal ideation, No Homicidal ideation, No Overt delusions Perceptual Disturbances: No Auditory hallucinations, No Visual hallucinations Attention Span Ability: Capable of Focused Attention, Unable to Sustain Attention Memory Description: Immediate Intact, Recent Impaired, Remote Intact Patient Reliability: Questionable Historian Fund of knowledge: Yes abstraction ability Intelligence Estimate: Below Average Judgment: Poor Insight: Partial Results - Drug Levels and Toxicology Drug Levels and Toxicology: Drug Levels and Toxicity 01/09/19 01/09/19 16:33 16:47 Urine Opiates Screen Positive H Acetaminophen < 10 L Ur Barbiturates Screen Negative Ur Phencyclidine Scrn Negative Ur Amphetamines Screen Positive H U Benzodiazepines Scrn Negative Urine Cocaine Screen Positive H U Marijuana (THC) Screen Negative Ethyl Alcohol < 10 - Labs Labs: Laboratory Last Values WBC 6.3 K/mcL (4.3-11.1) 01/10/19 09:38 RBC 4.36 M/mcL (4.19-5.50) 01/10/19 09:38 Hgb 12.6 g/dL (12.9-16.9) L D 01/10/19 09:38 Hct 36.5 % (37.5-50.1) L 01/10/19 09:38 MCV 83.7 fL (83.0-100.0) 01/10/19 09:38 MCH 28.9 pg (28.0-33.3) 01/10/19 09:38 MCHC 34.5 g/dL (31.6-35.5) 01/10/19 09:38 RDW 12.0 % (11.5-14.5) 01/10/19 09:38 Plt Count 178 K/mcL (140-400) 01/10/19 09:38 MPV 9.5 fL (9.4-12.4) 01/10/19 09:38 Immature Gran % 0.4 % (0-4) 01/09/19 16:47 Seg Neutrophils % 67.3 % 01/09/19 16:47 18.5 % 01/09/19 16:47 12.5 % 01/09/19 16:47 0.5 % 01/09/19 16:47 0.8 % 01/09/19 16:47 7.3 K/mcL (1.6-8.9) 01/09/19 16:47 2.0 K/mcL (0.6-4.6) 01/09/19 16:47 1.4 K/mcL (0.0-1.3) H 01/09/19 16:47 0.1 K/mcL (0.0-0.6) 01/09/19 16:47 0.1 K/mcL (0.0-0.2) 01/09/19 16:47 Sodium 140 mEq/L (136-145) 01/10/19 09:38 Potassium 3.8 mEq/L (3.5-5.1) 01/10/19 09:38 Chloride 110 mEq/L (98-107) H 01/10/19 09:38 Carbon Dioxide 26 mEq/L (23-29) 01/10/19 09:38 BUN 12 mg/dL (6-20) 01/10/19 09:38 0.54 mg/dL (0.70-1.30) L 01/10/19 09:38 Est GFR ( Amer) > 60 (> 60) 01/10/19 09:38 Est GFR (Non-Af Amer) > 60 (> 60) 01/10/19 09:38 22 (6-26) 01/10/19 09:38 Glucose 111 mg/dL (70-105) H 01/10/19 09:38 290 (280-300) 01/10/19 09:38 Calcium 7.9 mg/dL (8.6-10.3) L 01/10/19 09:38 Phosphorus 2.1 mg/dL (2.7-4.5) L 01/10/19 09:38 Magnesium 2.0 mg/dL (1.6-2.6) 01/10/19 09:38 1.0 mg/dL (0.3-1.0) 01/10/19 09:38 0.5 mg/dL (0.0-0.2) H 01/09/19 16:47 1.0 mg/dL (0.0-1.2) 01/09/19 16:47 AST 99 Units/L (13-39) H 01/10/19 09:38 ALT 167 Units/L (7-52) H 01/10/19 09:38 36 Units/L (34-104) 01/10/19 09:38 572 Units/L (30-223) H 01/10/19 09:38 5.6 g/dL (6.4-8.9) L 01/10/19 09:38 3.3 g/dL (3.5-5.7) L 01/10/19 09:38 2.3 g/dL (2.4-3.5) L 01/10/19 09:38 1.4 (1.1-2.2) 01/10/19 09:38 TSH 0.503 mcIU/mL (0.340-5.600) 01/09/19 16:47 Dark Yellow (Yellow) 01/09/19 16:33 Cloudy (Clear) A 01/09/19 16:33 5.5 pH Units (5.0-8.0) 01/09/19 16:33 Ur Specific [place] > 1.030 (1.010-1.025) H 01/09/19 16:33 30 mg/dL (Neg-Trace) H 01/09/19 16:33 Normal mg/dL (Normal) 01/09/19 16:33 15 mg/dL (Negative) H 01/09/19 16:33 Moderate (Negative) H 01/09/19 16:33 Negative (Negative) 01/09/19 16:33 Small (Negative) H 01/09/19 16:33 Normal mg/dL (Normal) 01/09/19 16:33 Ur Leukocyte Esterase Negative (Negative) 01/09/19 16:33 5-15 per hpf (0-3) H 01/09/19 16:33 3-5 per hpf (0-3) H 01/09/19 16:33 Ur Squamous Epith Cells Many per lpf (None-Few) H 01/09/19 16:33 Few per hpf (None-Few) 01/09/19 16:33 Hyaline Casts Moderate per lpf (None-Few) H 01/09/19 16:33 Granular Casts Few per lpf (None Seen) H 01/09/19 16:33 Salicylates < 2.5 mg/dL (15.0-30.0) L 01/09/19 16:47 Positive ng/mL (Aeknxw=888) H 01/09/19 16:33 Acetaminophen < 10 mcg/mL (10-20) L 01/09/19 16:47 Ur Barbiturates Screen Negative ng/mL (Enjdba=332) 01/09/19 16:33 Ur Phencyclidine Scrn Negative ng/mL (Cutoff=25) 01/09/19 16:33 Ur Amphetamines Screen Positive ng/mL (Sgyupa=0000) H 01/09/19 16:33 U Benzodiazepines Scrn Negative ng/mL (Elwyiz=610) 01/09/19 16:33 Positive ng/mL (Cutoff= 300) H 01/09/19 16:33 U Marijuana (THC) Screen Negative ng/mL (Cutoff = 50) 01/09/19 16:33 Ur Drug Screen Interp See Below 01/09/19 16:33 Ethyl Alcohol < 10 mg/dL (Less than 10) 01/09/19 16:47 Consult Discharge Plan - Plan Referrals: NONE,PCP [Primary Care Provider] -
[2019-01-11] MEDS: 0.9 % Sodium Chloride 1,000 ML IVC SCH (02:31)
[2019-01-11 04:32] LABS: Hematocrit 36.5 % (37.5-50.1); Hemoglobin 12.6 g/dL (12.9-16.9); Mean Corpuscular HGB Conc 34.5 g/dL (31.6-35.5); Mean Corpuscular Hemoglobin 29.6 pg (28.0-33.3); Mean Corpuscular Volume 85.9 fL (83.0-100.0); Mean Platelet Volume 10.1 fL (9.4-12.4); Platelet Count 196 K/mcL (140-400); Red Blood Count 4.25 M/mcL (4.19-5.50); Red Cell Distribution Width 12.4 % (11.5-14.5); White Blood Count 6.3 K/mcL (4.3-11.1)
[2019-01-11 04:53] LABS: Alanine Aminotransferase 169 Units/L (7-52); Albumin 3.1 g/dL (3.5-5.7); Albumin/Globulin Ratio 1.2 (1.1-2.2); Alkaline Phosphatase 42 Units/L (34-104); Aspartate Amino Transferase 91 Units/L (13-39); BUN/Creatinine Ratio 16 (6-26); Bilirubin,Total 0.4 mg/dL (0.3-1.0); Blood Urea Nitrogen 8 mg/dL (6-20); Calcium 7.9 mg/dL (8.6-10.3); Carbon Dioxide 28 mEq/L (23-29); Chloride 105 mEq/L (98-107); Globulin 2.5 g/dL (2.4-3.5); Glucose 109 mg/dL (70-105); Magnesium 1.8 mg/dL (1.6-2.6); Osmolality,Calculated 287 (280-300); Potassium 3.6 mEq/L (3.5-5.1); Sodium 139 mEq/L (136-145); Total Protein 5.6 g/dL (6.4-8.9); eGFR For African Americans > 60 (> 60); eGFR For Non-African Americans > 60 (> 60)
--- NOTE | 2019-01-11 10:27 | Internal Med Progress Note ---
Hospitalist Progress Note - Encounter Date of Encounter: 01/11/19 Time of Encounter: 10:21 - Subjective Interval History: patient is doing well, alert and oriented to3, he denies suicide ideation, and agrees to go to inpatient dual Dx program tolerated diet, will d/c IVF replace KCL await for psych to clear for discharge - Exam Vitals: Temp Pulse Resp BP Pulse Ox 98.9 F 92 16 126/68 95 01/11/19 04:32 01/11/19 04:32 01/11/19 04:32 01/11/19 04:32 01/11/19 04:32 Exam: Physical examination: Gen.: Patient is alert and oriented, not in respiratory distress of pain HEENT: perrla , EOMI, no thyroid gland enlargement, no neck mass, supple neck Heart: S1 and S2 andres, normal sinus rhythm, no cardiac murmur no gallop rhythm Chest: Air entry equal bilaterally, clear chest, no wheezing, crackles or crepitation Abdomen: Soft nontender nondistended positive bowel sounds, no organomegaly Extremities: No pitting edema, peripheral pulses palpable, no cyanosis tend erness Neuro: Able to move all 4 limbs, no focal neurological deficit. DVT Prophylaxis: ambulatory - Summary of Assessment and Plan Summary of Assessment and Plan: ( Denilson Yoo is a 23-year-old man with substance use disorder, chronic HCV and HTN who frequently is admitted for acute intoxication followed by delirium and suicidal ideation. He is brought in by EMS he can reportedly for suicidal ideation and as per chart review he attempted to kill himself by injecting large quantities of a concoction of methamphetamine and cocaine. On my assessment he is not cooperative and is rather tangential with pressured speech. Patient declined a full physical examination as he did not want to be touched. 1) Acute drug intoxication, IV cocaine and meth, resolved Current Visit: Yes Status: Acute Assessment and Plan: (2) Rhabdomyolysis CK trending down, d/c VF Current Visit: Yes Status: Acute Assessment and Plan: Secondary to cocaine and methamphetamine abuse On IV fluids Today creatinine kinase trending down to 572 (3) Substance abuse Current Visit: No Status: Acute Assessment and Plan: Cocaine and methamphetamine abuse (4) Suicidal ideation Current Visit: No Status: Acute (5) Transaminitis, LFT improved Current Visit: Yes Status: Acute Assessment and Plan: Patient has history of chronic hepatitis C On presentation AST was 126 and ALT 222 Today trending down on IV fluids and other supportive therapy With AST today 99 and ALT 167 avoid tylenol patient denied abdominal pain monitor liver function DVT Prophylaxis: ambulatory patient is medically cleared and await for psychiatry to clear for discharge - Time Spent with Patient Total time spent is greater than 50% in coordination of care (as documented) at patient's floor/unit and/or counseling patient: 25 - 35 minutes Plan of Care Discussed with: patient Internal Medicine: Result - Labs CBC & Chem 7: 01/11/19 03:16 01/11/19 03:16 Labs: Short CBC 01/11/19 Range/Units 03:16 WBC 6.3 (4.3-11.1) K/mcL Hgb 12.6 L (12.9-16.9) g/dL Hct 36.5 L (37.5-50.1) % Plt Count 196 (140-400) K/mcL BMP 01/11/19 03:16 Sodium 139 Potassium 3.6 Chloride 105 Carbon Dioxide 28 BUN 8 Creatinine 0.50 L Glucose 109 H Calcium 7.9 L Liver Function 01/11/19 Range/Units 03:16 Total Bilirubin 0.4 (0.3-1.0) mg/dL AST 91 H (13-39) Units/L ALT 169 H (7-52) Units/L Alkaline Phosphatase 42 (34-104) Units/L Albumin 3.1 L (3.5-5.7) g/dL Consult Discharge Plan - Plan Referrals: NONE,PCP [Primary Care Provider] -
[2019-01-11 12:04] VITALS: BP 121/67
--- NOTE | 2019-01-11 12:55 | Electrocardiograph Report ---
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
--- NOTE | 2019-01-11 17:12 | Discharge Summary ---
Date of Encounter: 01/11/19 Time of Encounter: 17:09 Hospital course: Mr. Denilson Yoo is a 23-year-old man with substance use disorder, chronic HCV and HTN who frequently is admitted for acute intoxication followed by delirium and suicidal ideation. He is brought in by EMS he can reportedly for suicidal ideation and as per chart review he attempted to kill himself by injecting large quantities of a concoction of methamphetamine and cocaine. On my assessment he is not cooperative and is rather tangential with pressured speech. Patient declined a full physical examination as he did not want to be touched. 1) Acute drug intoxication, IV cocaine and meth, resolved Current Visit: Yes Status: Acute Assessment and Plan: (2) Rhabdomyolysis CK trending down, d/c VF Current Visit: Yes Status: Acute Assessment and Plan: Secondary to cocaine and methamphetamine abuse On IV fluids Today creatinine kinase trending down to 572 (3) Substance abuse Current Visit: No Status: Acute Assessment and Plan: Cocaine and methamphetamine abuse (4) Suicidal ideation Current Visit: No Status: Acute (5) Transaminitis, LFT improved Current Visit: Yes Status: Acute Assessment and Plan: Patient has history of chronic hepatitis C On presentation AST was 126 and ALT 222 Today trending down on IV fluids and other supportive therapy With AST today 99 and ALT 167 avoid tylenol patient denied abdominal pain monitor liver function DVT Prophylaxis: ambulatory patient is medically cleared for inpatient psychiatry transfer Discharge discussed with: family Time spent discussing smoking cessation with patient: 3 to 10 minutes - Time Spent with Patient Total time spent providing and/or coordinating discharge services: Time spent: Less than 30 minutes - Discharge Medications Prescriptions: No Action No Known Home Drugs 1 each .ROUTE AD each Home Medications: No Known Home Drugs 01/09/19 [History] Allergies/Adverse Reactions: Allergy/AdvReac Type Severity Reaction Status Date / Time Penicillins [PCN] Allergy Rash Verified 08/01/18 08:14 Date of admission: 01/09/19 20:30 Primary care physician: PCP NONE Consults: 01/09/19 22:14 Consult to Psychiatry [CONS] Routine Consulting Provider: Psychiatry Dominique Reason consult: Sitter/1:1 Agitation Other reason and/or additional details: Agitation and paranoia r/t drug OD. [place] Slip initiated date and time: 01/09/19 @ 16:30 Call Completed: Yes 01/11/19 09:03 Consult to Rn Documentation [CONS] Routine Reason for SW Consult: needs placement - Constitutional Vitals: Temp Pulse Resp BP Pulse Ox 98.3 F 86 16 121/67 97 01/11/19 12:00 01/11/19 12:00 01/11/19 12:00 01/11/19 12:00 01/11/19 12:00 General appearance: Present: A&O X 3, pleasant Exam: Physical examination: Gen.: Patient is alert and oriented, not in respiratory distress of pain HEENT: perrla , EOMI, no thyroid gland enlargement, no neck mass, supple neck Heart: S1 and S2 andres, normal sinus rhythm, no cardiac murmur no gallop rhythm Chest: Air entry equal bilaterally, clear chest, no wheezing, crackles or crepitation Abdomen: Soft nontender nondistended positive bowel sounds, no organomegaly Extremities: No pitting edema, peripheral pulses palpable, no cyanosis tenderness Neuro: Able to move all 4 limbs, no focal neurological deficit. - Patient Status Disposition: Transfer Psychiatric Hosp Condition: Good Functional capacity at discharge: independent ambulation - Discharge Instructions Follow Up With: NONE,PCP [Primary Care Provider] -
== END 2019-01-11 20:13 | DRG 817 ==
LOC: EMEROOARM 16:18 → 2ANU 16:18 → SUATTDRO 20:30
PROVIDERS: ADMIT Internal Medicine; ATTEND Hospitalist

== ENCOUNTER 2020-04-11 16:03 | Observation (INO) ==
[2020-04-11] MEDS ORDERED: *HR* LORazepam 2 MG/ML VIAL IVP ONE ×2 (16:45→17:57)
[2020-04-11] MEDS ORDERED: 0.9 % Sodium Chloride 1,000 ML IVC ONE (16:45)
[2020-04-11 17:28] LABS: Basophils # 0.1 K/mcL (0.0-0.2); Basophils % 0.4 %; Hematocrit 45.1 % (37.5-50.1); Hemoglobin 15.5 g/dL (12.9-16.9); Immature Granulocytes % 0.6 % (0-4); Lymphocytes # 1.5 K/mcL (0.6-4.6); Lymphocytes % 8.2 %; Mean Corpuscular HGB Conc 34.4 g/dL (31.6-35.5); Mean Corpuscular Hemoglobin 28.7 pg (28.0-33.3); Mean Corpuscular Volume 83.5 fL (83.0-100.0); Mean Platelet Volume 9.1 fL (9.4-12.4); Monocytes # 1.3 K/mcL (0.0-1.3); Neutrophils # 15.4 K/mcL (1.6-8.9); Platelet Count 380 K/mcL (140-400); Red Cell Distribution Width 12.1 % (11.5-14.5); Segmented Neutrophils % 83.8 %; White Blood Count 18.4 K/mcL (4.3-11.1)
[2020-04-11 17:49] LABS: Acetaminophen < 10 mcg/mL (10-20); Alanine Aminotransferase 133 Units/L (7-52); Albumin 5.1 g/dL (3.5-5.7); Albumin/Globulin Ratio 1.4 (1.1-2.2); Alkaline Phosphatase 56 Units/L (34-104); Aspartate Amino Transferase 139 Units/L (13-39); BUN/Creatinine Ratio 25 (6-26); Bilirubin,Direct 0.4 mg/dL (0.0-0.2); Bilirubin,Indirect 1.2 mg/dL (0.0-1.0); Bilirubin,Total 1.6 mg/dL (0.3-1.0); Blood Urea Nitrogen 24 mg/dL (6-20); Calcium 9.8 mg/dL (8.6-10.3); Carbon Dioxide 18 mEq/L (23-29); Chloride 90 mEq/L (98-107); Ethanol < 10 mg/dL (Less than 10); Globulin 3.6 g/dL (2.4-3.5); Glucose 44 mg/dL (70-105); Osmolality,Calculated 275 (280-300); Potassium 3.8 mEq/L (3.5-5.1); Salicylate < 2.5 mg/dL (15.0-30.0); Sodium 132 mEq/L (136-145); Total Protein 8.7 g/dL (6.4-8.9); eGFR For African Americans > 60 (> 60); eGFR For Non-African Americans > 60 (> 60)
[2020-04-11] MEDS ORDERED: *HR* Dextrose 50 % in Water (Vial) 50 ML VIAL IVP ONE (18:35)
[2020-04-11] MEDS ORDERED: Ziprasidone 20 MG/VIAL VIAL IM ONE (19:36)
[2020-04-11] MEDS ORDERED: Ziprasidone 10 MG in Water for inj. (sterile) 0.5 ML IM ONE ×3 (19:36→22:10)
[2020-04-11] MEDS ORDERED: Water for inj. (sterile) 20 ML IV ONE (19:36)
[2020-04-11 21:11] LABS: Bilirubin,Urine Negative (Negative); Blood,Urine Moderate (Negative); Clarity,Urine Clear (Clear); Color,Urine Light-Yellow (Yellow); Glucose,Urine (UA) Normal (Normal); Ketones,Urine >150 mg/dL (Negative); Leukocyte Esterase,Urine Negative (Negative); Mucus,Urine Few per lpf (None-Few); Nitrite,Urine Negative (Negative); PH,Urine 5.5 pH Units (5.0-8.0); Protein,Urine 30 mg/dL (Neg-Trace); RBC,Urine 0-3 per hpf (0-3); Specific Gravity,Urine 1.023 (1.010-1.025); Squamous Epithelial Cell,Urine Few per hpf (None-Few); WBC,Urine 0-3 per hpf (0-3)
[2020-04-11 21:12] LABS: Amphetamine Screen,Urine Positive ng/mL (Cutoff=1000); Barbiturate Screen,Urine Negative ng/mL (Cutoff=200); Benzodiazepines Screen,Urine Negative ng/mL (Cutoff=200); Cannabinoid Screen,Urine Positive ng/mL (Cutoff = 50); Cocaine Screen,Urine Negative ng/mL (Cutoff= 300); Opiate Screen,Urine Negative ng/mL (Cutoff=300); Phencyclidine Screen,Urine Negative ng/mL (Cutoff=25)
[2020-04-11 21:31] LABS: VBG HCO3 18 mEq/L (21-27); VBG PCO2 35 mmHg (41-51); VBG PH 7.32 pH Units (7.32-7.42); VBG PO2 197 mmHg (25-50)
[2020-04-12 02:40] LABS: Adenovirus Not Detected (Not Detect); Bordetella Pertussis Not Detected (Not Detect); Chlamydophila pneumoniae Not Detected (Not Detect); Coronavirus 229E Not Detected (Not Detect); Coronavirus HKU1 Not Detected (Not Detect); Coronavirus NL63 Not Detected (Not Detect); Coronavirus OC43 Not Detected (Not Detect); Human Metapneumovirus Not Detected (Not Detect); Human Rhinovirus/Enterovirus Not Detected (Not Detect); Influenza A Subtype 2009 H1 Not Detected (Not Detect); Influenza B Not Detected (Not Detect); Mycoplasma pneumoniae Not Detected (Not Detect); Parainfluenza Virus 1 Not Detected (Not Detect); Parainfluenza Virus 2 Not Detected (Not Detect); Parainfluenza Virus 3 Not Detected (Not Detect); Parainfluenza Virus 4 Not Detected (Not Detect); Respiratory Syncytial Virus Not Detected (Not Detect); SARS-CoV-2 Not Detected (Not Detect)
[2020-04-12] MEDS ORDERED: *HR* Promethazine 25 MG/ML VIAL IVP PRN (02:56)
[2020-04-12] MEDS ORDERED: Naloxone 0.4 MG/ML INJ IVP PRN (02:56)
[2020-04-12] MEDS ORDERED: 0.9 % Sodium Chloride 1,000 ML IVC SCH (03:00)
[2020-04-12] MEDS ORDERED: Dextrose Gel 15 GM/37.5 ML TUBE PO PRN ×2 (04:40)
[2020-04-12] MEDS ORDERED: D5% in Water 1,000 ML IVC PRN (04:40)
[2020-04-12] MEDS ORDERED: *HR* Dextrose 50 % in Water (Vial) 50 ML VIAL IVP PRN (04:40)
[2020-04-12] MEDS ORDERED: 0.9 % Sodium Chloride 1,000 ML IV ONE (04:51)
[2020-04-12 05:22] LABS: Basophils # 0.1 K/mcL (0.0-0.2); Basophils % 0.4 %; Eosinophils % 0.3 %; Hemoglobin 14.7 g/dL (12.9-16.9); Immature Granulocytes % 0.5 % (0-4); Lymphocytes # 2.3 K/mcL (0.6-4.6); Lymphocytes % 18.1 %; Mean Corpuscular HGB Conc 34.2 g/dL (31.6-35.5); Mean Corpuscular Hemoglobin 28.6 pg (28.0-33.3); Mean Corpuscular Volume 83.7 fL (83.0-100.0); Mean Platelet Volume 9.4 fL (9.4-12.4); Monocytes # 1.5 K/mcL (0.0-1.3); Monocytes % 11.8 %; Neutrophils # 8.7 K/mcL (1.6-8.9); Platelet Count 340 K/mcL (140-400); Red Blood Count 5.14 M/mcL (4.19-5.50); Red Cell Distribution Width 12.2 % (11.5-14.5); Segmented Neutrophils % 68.9 %; White Blood Count 12.7 K/mcL (4.3-11.1)
[2020-04-12 05:42] LABS: Alanine Aminotransferase 113 Units/L (7-52); Albumin 4.5 g/dL (3.5-5.7); Albumin/Globulin Ratio 1.4 (1.1-2.2); Alkaline Phosphatase 48 Units/L (34-104); Aspartate Amino Transferase 120 Units/L (13-39); BUN/Creatinine Ratio 23 (6-26); Bilirubin,Total 1.4 mg/dL (0.3-1.0); Blood Urea Nitrogen 21 mg/dL (6-20); Calcium 9.4 mg/dL (8.6-10.3); Carbon Dioxide 20 mEq/L (23-29); Chloride 97 mEq/L (98-107); Cholesterol 166 mg/dL (< 200); Globulin 3.2 g/dL (2.4-3.5); Glucose 99 mg/dL (70-105); HDL Cholesterol 55 mg/dL (40-59); LDL Cholesterol,Calculated 99 mg/dL (< 100); Magnesium 2.1 mg/dL (1.6-2.6); Osmolality,Calculated 279 (280-300); Phosphorous 3.5 mg/dL (2.7-4.5); Potassium 3.6 mEq/L (3.5-5.1); Sodium 133 mEq/L (136-145); Total Protein 7.7 g/dL (6.4-8.9); Triglycerides 62 mg/dL (< 150); eGFR For African Americans > 60 (> 60); eGFR For Non-African Americans > 60 (> 60)
[2020-04-12] MEDS: Insulin LISPRO 300 UNITS/3 ML VIAL SQ SCH ×3 (09:13→16:27)
[2020-04-12] MEDS: *HR* HYDROcodone/Acet 5/325 mg TABLET PO PRN ×3 (09:13→22:27)
[2020-04-12] MEDS: 0.9 % Sodium Chloride 1,000 ML IVC SCH ×2 (12:36→19:25)
[2020-04-12 15:40] LABS: BUN/Creatinine Ratio 19 (6-26); Blood Urea Nitrogen 13 mg/dL (6-20); Calcium 8.2 mg/dL (8.6-10.3); Carbon Dioxide 25 mEq/L (23-29); Chloride 104 mEq/L (98-107); Creatine Kinase 1990 Units/L (30-223); Glucose 150 mg/dL (70-105); Osmolality,Calculated 285 (280-300); Potassium 3.3 mEq/L (3.5-5.1); Sodium 136 mEq/L (136-145); eGFR For African Americans > 60 (> 60); eGFR For Non-African Americans > 60 (> 60)
[2020-04-13] MEDS: 0.9 % Sodium Chloride 1,000 ML IVC SCH ×3 (02:16→12:13)
[2020-04-13 03:41] LABS: Basophils % 0.7 %; Eosinophils # 0.1 K/mcL (0.0-0.6); Eosinophils % 1.4 %; Hematocrit 38.5 % (37.5-50.1); Immature Granulocytes % 0.2 % (0-4); Lymphocytes # 1.9 K/mcL (0.6-4.6); Lymphocytes % 32.2 %; Mean Corpuscular HGB Conc 33.8 g/dL (31.6-35.5); Mean Corpuscular Hemoglobin 29.3 pg (28.0-33.3); Mean Corpuscular Volume 86.9 fL (83.0-100.0); Mean Platelet Volume 9.5 fL (9.4-12.4); Monocytes # 0.8 K/mcL (0.0-1.3); Monocytes % 13.5 %; Neutrophils # 3.1 K/mcL (1.6-8.9); Platelet Count 253 K/mcL (140-400); Red Blood Count 4.43 M/mcL (4.19-5.50); Red Cell Distribution Width 12.4 % (11.5-14.5)
[2020-04-13 03:45] LABS: White Blood Count 5.9 K/mcL (4.3-11.1)
[2020-04-13 03:53] LABS: BUN/Creatinine Ratio 17 (6-26); Blood Urea Nitrogen 9 mg/dL (6-20); Calcium 7.7 mg/dL (8.6-10.3); Carbon Dioxide 25 mEq/L (23-29); Chloride 108 mEq/L (98-107); Creatine Kinase 1181 Units/L (30-223); Glucose 113 mg/dL (70-105); Osmolality,Calculated 283 (280-300); Potassium 3.7 mEq/L (3.5-5.1); Sodium 137 mEq/L (136-145); eGFR For African Americans > 60 (> 60); eGFR For Non-African Americans > 60 (> 60)
[2020-04-13] MEDS: *HR* HYDROcodone/Acet 5/325 mg TABLET PO PRN ×2 (05:33→12:15)
[2020-04-13] MEDS: Insulin LISPRO 300 UNITS/3 ML VIAL SQ SCH (07:46)
[2020-04-13 11:37] VITALS: BP 129/68
== END 2020-04-13 13:59 | disposition home or self-care (01) ==
LOC: EMEROOARM 16:03 → 3ANU 16:03 → SUATTDRO 04-12 01:38 → 3ANU 04-12 03:26
PROVIDERS: ADMIT Internal Medicine; ATTEND Family Medicine

== ENCOUNTER 2021-03-14 22:18 | Inpatient (IN) ==
[2021-03-15 03:28] LABS: Basophils # 0.1 K/mcL (0.0-0.2); Basophils % 1.1 %; Eosinophils # 0.1 K/mcL (0.0-0.6); Eosinophils % 2.5 %; Hematocrit 36.5 % (37.5-50.1); Hemoglobin 11.6 g/dL (12.9-16.9); Immature Granulocytes % 0.4 % (0-4); Lymphocytes # 1.8 K/mcL (0.6-4.6); Lymphocytes % 32.4 %; Mean Corpuscular HGB Conc 31.8 g/dL (31.6-35.5); Mean Corpuscular Hemoglobin 25.7 pg (28.0-33.3); Mean Corpuscular Volume 80.8 fL (83.0-100.0); Mean Platelet Volume 8.5 fL (9.4-12.4); Monocytes # 0.5 K/mcL (0.0-1.3); Monocytes % 9.8 %; Platelet Count 323 K/mcL (140-400); Red Blood Count 4.52 M/mcL (4.19-5.50); Red Cell Distribution Width 14.1 % (11.5-14.5); Segmented Neutrophils % 53.8 %; White Blood Count 5.5 K/mcL (4.3-11.1)
[2021-03-15 03:46] LABS: Alanine Aminotransferase 24 Units/L (7-52); Albumin 3.1 g/dL (3.5-5.7); Albumin/Globulin Ratio 0.9 (1.1-2.2); Alkaline Phosphatase 50 Units/L (34-104); Aspartate Amino Transferase 23 Units/L (13-39); BUN/Creatinine Ratio 22 (6-26); Bilirubin,Total 0.2 mg/dL (0.3-1.0); Blood Urea Nitrogen 10 mg/dL (6-20); Calcium 8.6 mg/dL (8.6-10.3); Carbon Dioxide 29 mEq/L (23-29); Chloride 104 mEq/L (98-107); Creatine Kinase 30 Units/L (30-223); Globulin 3.3 g/dL (2.4-3.5); Glucose 93 mg/dL (70-105); Magnesium 1.9 mg/dL (1.6-2.6); Osmolality,Calculated 283 (280-300); Sodium 137 mEq/L (136-145); Total Protein 6.4 g/dL (6.4-8.9); eGFR For African Americans > 60 (> 60); eGFR For Non-African Americans > 60 (> 60)
[2021-03-15 04:45] LABS: Amorphous Sediment,Urine Few per hpf (None-Few); Bacteria,Urine Few per hpf (None-Few); Bilirubin,Urine Negative (Negative); Blood,Urine Negative (Negative); Calcium Oxalate Crystals,Urine Present per hpf; Clarity,Urine Turbid (Clear); Color,Urine Light-Yellow (Yellow); Glucose,Urine (UA) Normal (Normal); Ketones,Urine Negative (Negative); Leukocyte Esterase,Urine Negative (Negative); Nitrite,Urine Negative (Negative); Protein,Urine Negative (Neg-Trace); RBC,Urine 0-3 per hpf (0-3); Specific Gravity,Urine 1.017 (1.010-1.025); Squamous Epithelial Cell,Urine Few per hpf (None-Few); Urobilinogen,Urine Normal (Normal)
[2021-03-15] MEDS ORDERED: 0.9 % Sodium Chloride 250 ML ONE (04:49)
[2021-03-15] MEDS ORDERED: Acetaminophen 325 MG TABLET PO PRN (05:21)
[2021-03-15] MEDS ORDERED: Naloxone 0.4 MG/ML INJ IVP PRN (05:21)
[2021-03-15] MEDS ORDERED: Perflutren Lipid Microsphere 1.3 ML in 0.9 % Sodium Chloride 8.7 ML IVP PRN (05:22)
[2021-03-15] MEDS ORDERED: cefTRIAXone 2,000 MG in Water for inj. (sterile) 20 ML IVP SCH (07:00)
[2021-03-15] MEDS: 0.9 % Sodium Chloride 1,000 ML IVC SCH ×2 (07:40→17:05)
[2021-03-15 08:14] LABS: HIV-1&2 Antibody & p24 Ag Nonreactive (Nonreactive)
[2021-03-15 11:02] LABS: Rheumatoid Factor 13 IU/mL (Less than 14)
[2021-03-15] MEDS ORDERED: Ibuprofen 600 MG TABLET PO PRN (14:18)
[2021-03-15] MEDS: Clotrimazole 1% CRM 15 GM TUBE TP SCH ×2 (15:19→20:43)
[2021-03-16] MEDS: Ondansetron 4 MG/2 ML VIAL IVP PRN ×2 (01:04→11:26)
[2021-03-16] MEDS ORDERED: Prochlorperazine 10 MG/2 ML VIAL IVP PRN (04:50)
[2021-03-16 05:38] LABS: Basophils # 0.1 K/mcL (0.0-0.2); Basophils % 0.8 %; Eosinophils % 0.4 %; Hematocrit 39.6 % (37.5-50.1); Hemoglobin 12.5 g/dL (12.9-16.9); Immature Granulocytes % 0.5 % (0-4); Lymphocytes # 1.9 K/mcL (0.6-4.6); Lymphocytes % 22.5 %; Mean Corpuscular HGB Conc 31.6 g/dL (31.6-35.5); Mean Corpuscular Hemoglobin 25.3 pg (28.0-33.3); Mean Platelet Volume 8.7 fL (9.4-12.4); Monocytes # 0.5 K/mcL (0.0-1.3); Monocytes % 6.2 %; Neutrophils # 5.9 K/mcL (1.6-8.9); Platelet Count 346 K/mcL (140-400); Red Blood Count 4.95 M/mcL (4.19-5.50); Red Cell Distribution Width 13.9 % (11.5-14.5); Segmented Neutrophils % 69.6 %; White Blood Count 8.4 K/mcL (4.3-11.1)
[2021-03-16 05:42] LABS: Prothrombin Time 11.6 Seconds (9.4-12.1)
[2021-03-16 05:54] LABS: BUN/Creatinine Ratio 24 (6-26); Blood Urea Nitrogen 10 mg/dL (6-20); C-Reactive Protein 7 mg/L (Less than 10); Calcium 8.4 mg/dL (8.6-10.3); Carbon Dioxide 25 mEq/L (23-29); Chloride 104 mEq/L (98-107); Glucose 102 mg/dL (70-105); Magnesium 1.6 mg/dL (1.6-2.6); Osmolality,Calculated 277 (280-300); Potassium 4.1 mEq/L (3.5-5.1); Sodium 134 mEq/L (136-145); eGFR For African Americans > 60 (> 60); eGFR For Non-African Americans > 60 (> 60)
[2021-03-16] MEDS: cefTRIAXone 2,000 MG in 0.9 % Sodium Chloride Mini Bag 100 ML IVPB SCH (08:57)
[2021-03-16] MEDS: Clotrimazole 1% CRM 15 GM TUBE TP SCH ×2 (09:01→19:59)
[2021-03-17] MEDS: cefTRIAXone 2,000 MG in 0.9 % Sodium Chloride Mini Bag 100 ML IVPB SCH (11:48)
[2021-03-17] MEDS: Clotrimazole 1% CRM 15 GM TUBE TP SCH ×2 (11:48→20:19)
[2021-03-17] MEDS: Vancomycin 1,500 MG/265 ML IV.SOLN IVPB SCH (20:10)
[2021-03-18] MEDS: Vancomycin 1,500 MG/265 ML IV.SOLN IVPB SCH ×2 (04:30→13:14)
[2021-03-18 06:39] LABS: Basophils # 0.1 K/mcL (0.0-0.2); Basophils % 1.3 %; Eosinophils # 0.1 K/mcL (0.0-0.6); Eosinophils % 1.3 %; Hematocrit 44.8 % (37.5-50.1); Immature Granulocytes % 1.1 % (0-4); Lymphocytes # 2.8 K/mcL (0.6-4.6); Lymphocytes % 25.9 %; Mean Corpuscular HGB Conc 32.1 g/dL (31.6-35.5); Mean Corpuscular Hemoglobin 25.5 pg (28.0-33.3); Mean Corpuscular Volume 79.4 fL (83.0-100.0); Mean Platelet Volume 8.5 fL (9.4-12.4); Monocytes # 0.8 K/mcL (0.0-1.3); Monocytes % 7.7 %; Neutrophils # 6.7 K/mcL (1.6-8.9); Platelet Count 386 K/mcL (140-400); Red Blood Count 5.64 M/mcL (4.19-5.50); Red Cell Distribution Width 14.6 % (11.5-14.5); Segmented Neutrophils % 62.7 %; White Blood Count 10.7 K/mcL (4.3-11.1)
[2021-03-18 06:42] LABS: Hemoglobin 14.4 g/dL (12.9-16.9)
[2021-03-18 07:03] LABS: BUN/Creatinine Ratio 38 (6-26); Blood Urea Nitrogen 19 mg/dL (6-20); Carbon Dioxide 26 mEq/L (23-29); Chloride 102 mEq/L (98-107); Glucose 97 mg/dL (70-105); Osmolality,Calculated 282 (280-300); Potassium 4.4 mEq/L (3.5-5.1); Sodium 135 mEq/L (136-145); eGFR For African Americans > 60 (> 60); eGFR For Non-African Americans > 60 (> 60)
[2021-03-18 07:04] LABS: eGFR For African Americans > 60 (> 60); eGFR For Non-African Americans > 60 (> 60)
[2021-03-18] MEDS: Clotrimazole 1% CRM 15 GM TUBE TP SCH ×2 (10:18→22:17)
[2021-03-18] MEDS: cefTRIAXone 2,000 MG in 0.9 % Sodium Chloride Mini Bag 100 ML IVPB SCH (10:18)
[2021-03-18 10:22] LABS: Calcium 9.2 mg/dL (8.6-10.3)
[2021-03-18] MEDS: Vancomycin 1,750 MG/517.5 ML IV.SOLN IVPB SCH (22:15)
[2021-03-19 02:59] LABS: Basophils # 0.2 K/mcL (0.0-0.2); Basophils % 1.7 %; Eosinophils # 0.2 K/mcL (0.0-0.6); Eosinophils % 2.2 %; Hematocrit 43.4 % (37.5-50.1); Hemoglobin 13.7 g/dL (12.9-16.9); Immature Granulocytes % 2.8 % (0-4); Lymphocytes # 3.3 K/mcL (0.6-4.6); Lymphocytes % 30.3 %; Mean Corpuscular HGB Conc 31.6 g/dL (31.6-35.5); Mean Corpuscular Hemoglobin 25.3 pg (28.0-33.3); Mean Corpuscular Volume 80.1 fL (83.0-100.0); Mean Platelet Volume 8.3 fL (9.4-12.4); Monocytes # 0.9 K/mcL (0.0-1.3); Monocytes % 8.6 %; Neutrophils # 5.9 K/mcL (1.6-8.9); Platelet Count 408 K/mcL (140-400); Red Blood Count 5.42 M/mcL (4.19-5.50); Red Cell Distribution Width 14.6 % (11.5-14.5); Segmented Neutrophils % 54.4 %; White Blood Count 10.8 K/mcL (4.3-11.1)
[2021-03-19 03:03] LABS: BUN/Creatinine Ratio 40 (6-26); Blood Urea Nitrogen 20 mg/dL (6-20); Calcium 9.2 mg/dL (8.6-10.3); Carbon Dioxide 25 mEq/L (23-29); Chloride 101 mEq/L (98-107); Glucose 81 mg/dL (70-105); Osmolality,Calculated 282 (280-300); Potassium 4.5 mEq/L (3.5-5.1); Sodium 135 mEq/L (136-145); eGFR For African Americans > 60 (> 60); eGFR For Non-African Americans > 60 (> 60)
[2021-03-19] MEDS: Vancomycin 1,750 MG/517.5 ML IV.SOLN IVPB SCH ×3 (06:09→19:52)
[2021-03-19] MEDS: Vancomycin 1,500 MG/265 ML IV.SOLN IVPB SCH (07:21)
[2021-03-19] MEDS: cefTRIAXone 2,000 MG in 0.9 % Sodium Chloride Mini Bag 100 ML IVPB SCH (08:03)
[2021-03-19] MEDS: Clotrimazole 1% CRM 15 GM TUBE TP SCH ×2 (08:09→19:53)
[2021-03-19 17:18] LABS: Influenza A PCR Negative (Negative); Influenza B PCR Negative (Negative); Resp. Syncytial Virus PCR Negative (Negative)
[2021-03-19 17:19] LABS: SARS-CoV-2 by PCR (In House) Negative (Negative)
[2021-03-19] MEDS: Ondansetron 4 MG/2 ML VIAL IVP PRN (18:42)
[2021-03-19] MEDS ORDERED: Prochlorperazine 10 MG/2 ML VIAL IVP ONE (21:59)
[2021-03-20 06:20] LABS: Basophils # 0.1 K/mcL (0.0-0.2); Basophils % 1.3 %; Eosinophils # 0.2 K/mcL (0.0-0.6); Eosinophils % 1.6 %; Hematocrit 43.5 % (37.5-50.1); Hemoglobin 13.9 g/dL (12.9-16.9); Immature Granulocytes % 1.8 % (0-4); Lymphocytes # 2.7 K/mcL (0.6-4.6); Lymphocytes % 25.4 %; Mean Corpuscular Hemoglobin 25.6 pg (28.0-33.3); Mean Corpuscular Volume 80.3 fL (83.0-100.0); Mean Platelet Volume 8.1 fL (9.4-12.4); Monocytes # 0.7 K/mcL (0.0-1.3); Monocytes % 6.5 %; Neutrophils # 6.8 K/mcL (1.6-8.9); Platelet Count 383 K/mcL (140-400); Red Blood Count 5.42 M/mcL (4.19-5.50); Red Cell Distribution Width 14.6 % (11.5-14.5); Segmented Neutrophils % 63.4 %; White Blood Count 10.7 K/mcL (4.3-11.1)
[2021-03-20 06:45] LABS: BUN/Creatinine Ratio 41 (6-26); Blood Urea Nitrogen 21 mg/dL (6-20); Calcium 9.1 mg/dL (8.6-10.3); Carbon Dioxide 26 mEq/L (23-29); Chloride 102 mEq/L (98-107); Glucose 95 mg/dL (70-105); Osmolality,Calculated 283 (280-300); Potassium 4.4 mEq/L (3.5-5.1); Sodium 135 mEq/L (136-145); eGFR For African Americans > 60 (> 60); eGFR For Non-African Americans > 60 (> 60)
[2021-03-20] MEDS: Vancomycin 1,750 MG/517.5 ML IV.SOLN IVPB SCH (07:32)
[2021-03-20] MEDS: Vancomycin 2,000 MG/520 ML IV.SOLN IVPB SCH ×3 (07:44→22:05)
[2021-03-20] MEDS: Clotrimazole 1% CRM 15 GM TUBE TP SCH ×2 (07:45→22:15)
[2021-03-20] MEDS: cefTRIAXone 2,000 MG in 0.9 % Sodium Chloride Mini Bag 100 ML IVPB SCH (09:24)
[2021-03-20] MEDS ORDERED: Lidocaine Viscous Oral Soln 15 ML SOLUTION MM PRN (13:07)
[2021-03-20] MEDS ORDERED: 0.9 % Sodium Chloride 500 ML IVC ONE (13:08)
[2021-03-21] MEDS: Vancomycin 2,000 MG/520 ML IV.SOLN IVPB SCH (05:57)
[2021-03-21 06:56] LABS: Vancomycin,Trough 24 mcg/mL (5-10)
[2021-03-21 07:31] VITALS: BP 121/79; PULSE 98; TEMP 98.5; O2SAT 99
[2021-03-21] MEDS: cefTRIAXone 2,000 MG in 0.9 % Sodium Chloride Mini Bag 100 ML IVPB SCH (09:35)
[2021-03-21] MEDS: Clotrimazole 1% CRM 15 GM TUBE TP SCH (09:35)
[2021-03-21 10:23] LABS: eGFR For African Americans > 60 (> 60); eGFR For Non-African Americans > 60 (> 60)
[2021-03-21 11:01] LABS: HIV-1 Viral Load Interp NOT DETECTED (Not Detected)
== END 2021-03-21 13:25 | disposition home or self-care (01) | DRG 872 ==
LOC: CDU 22:18 → EMEROOARM 22:18 → SUATTDRO 03-15 05:31 → CDU 03-15 06:05 → 3ANU 03-15 16:05 → SUATTDRO 03-16 17:43 → 2ANU 03-18 23:30
PROVIDERS: ADMIT Internal Medicine; ATTEND Internal Medicine